=== PATIENT | female | born 1985 | race Caucasian/White ===

== ENCOUNTER 2020-01-23 09:27 | Outpatient (CLI) | payer OTHER, SELFPAY ==
--- NOTE | 2020-01-25 15:09 | WPDHOLTEREM ---
Holter/Event Monitor Holter/Event Monitor Date of procedure: 01/23/20 Procedure Type: 24 hour holter monitor Indications: Palpitations Conclusion: 1. 24 hour holter monitor on 01/23/20. 2. Predominant rhythm is sinus rhythm. HR range 60-148 bpm; average HR 88 bpm. 3. There are 22 premature supraventricular complexes and 5 supraventricular couplets. There are 9 episodes of atrial tachycardia, fastest at 154 bpm and longest lasting 26 beats. 4. There is one premature ventricular complex. No ventricular tachycardia. 5. No sinoatrial or atrioventricular blocks. No significant pauses greater than 2 seconds. 6. Patient reports symptoms of fast heart rate which demonstrate sinus rhythm, HR range 77-104 bpm.
== END 2020-01-23 09:28 | disposition home or self-care (01) ==
PROVIDERS: PCP Family Medicine; Visit Provider Obstetrics & Gynecology
DX: R00.2 Palpitations (principal)
CPT/HCPCS: 93225; 93226

== ENCOUNTER 2020-02-13 13:42 | Observation (INO) | payer OTHER, SELFPAY ==
[2020-02-13 14:00] VITALS: BP 119/66; PULSE 102
[2020-02-13 14:11] LABS: Add Urine Microscopic? NO; Appearance Urine Clear (Clear); Bilirubin Urine Negative (Negative); Blood Urine Negative (Negative); Color Urine Colorless (Yellow); Glucose Urine UA Negative (Negative); Ketones Urine Negative (Negative); Leukocyte Esterase Ur Negative LEU/UL (Negative); Nitrate Urine Negative (Negative); Protein Urine Negative (Negative); Specific Grav Ur 1.008 (1.001-1.035); Urobilinogen Urine Negative mg/dL (<2.0)
[2020-02-13 14:34] VITALS: BMI 22.0
--- NOTE | 2020-02-13 14:35 | OBADM ---
This patient, Paloma Ojeda, admitted to the OB room OB Post 115 for observation. Patient/family oriented to hospital policies and general routines including ID bracelet, bed and alarms, visiting hours, pain management, procedures, bathroom and other care routines, personal items, smoking policy, room service/diet, and visiting hours. Patient/Family are encouraged to report perceived risks to care and to ask questions if they do not understand what they are told or what they should do.
[2020-02-13 14:51] VITALS: BP 119/66; PULSE 103
--- NOTE | 2020-02-13 14:57 | PC.NURSE ---
5210- Spoke with Dr. Gregory, patient urinalysis and ROm plus reviewed. Orders to discharge home with precautions.
--- NOTE | 2020-03-05 11:37 | PM.OBTRLD ---
OB - Triage/Final Diagnosis Visit Information Date of evaluation: 02/13/20 Evaluation Laboratory results: Laboratory Tests 02/13/20 14:01 Urine Color Colorless Urine Appearance Clear Urine pH 7.0 Ur Specific [place] 1.008 Urine Protein Negative Urine Glucose (UA) Negative Urine Ketones Negative Ur Blood (Man) Negative Urine Nitrate Negative Urine Bilirubin Negative Urine Urobilinogen Negative Leukocyte Esterase Rfl Negative Final Diagnosis (1) contractions: Code(s): O47.9 - False labor, unspecified Status: Acute
== END 2020-02-13 14:55 | disposition home or self-care (01) ==
PROVIDERS: Admitting Provider Obstetrics & Gynecology; PCP Family Medicine; Visit Provider Obstetrics & Gynecology
DX: O47.9 False labor, unspecified (principal); Z3A.00 Weeks of gestation of pregnancy not specified
CPT/HCPCS: 59025; 81003; G0378; G0379

== ENCOUNTER 2020-03-13 19:24 | Observation (INO) | payer OTHER, SELFPAY ==
--- NOTE | 2020-03-13 19:24 | OBADM ---
This patient, Paloma Ojeda, admitted to the OB room OB Post 112 for observation. Patient/family oriented to hospital policies and general routines including ID bracelet, bed and alarms, visiting hours, pain management, procedures, bathroom and other care routines, personal items, smoking policy, room service/diet, and visiting hours. Patient/Family are encouraged to report perceived risks to care and to ask questions if they do not understand what they are told or what they should do.
[2020-03-13 19:40] VITALS: BMI 27.6
[2020-03-13 19:50] VITALS: BP 121/79; PULSE 91
[2020-03-13 20:18] VITALS: TEMP 36.6
--- NOTE | 2020-03-21 08:15 | PM.OBTRLD ---
OB - Triage/Final Diagnosis Final Diagnosis (1) contractions: Code(s): O47.9 - False labor, unspecified Status: Acute
== END 2020-03-13 22:15 | disposition home or self-care (01) ==
PROVIDERS: Admitting Provider Obstetrics & Gynecology; PCP Family Medicine; Visit Provider Obstetrics & Gynecology
DX: O47.9 False labor, unspecified (principal); Z3A.00 Weeks of gestation of pregnancy not specified
CPT/HCPCS: 84112; G0378; G0379

== ENCOUNTER 2020-05-01 14:53 | Outpatient (CLI) | payer OTHER, SELFPAY ==
[2020-05-01 15:39] LABS: Hematocrit 33.5 % (37.0-47.0); Hemoglobin 10.9 g/dL (12.0-15.0); Mean Corpuscular HGB Conc 32.5 g/dl (32-36); Mean Corpuscular Hemoglobin 29.3 pg (26-34); Mean Corpuscular Volume 90.1 fl (80-100); Platelet Count Result 271 k/mm3 (150-375); Red Blood Count 3.72 M/mm3 (4.2-5.4); Red Cell Distribution Width 13.1 % (11.5-14.5); White Blood Count 9.9 K/mm3 (4.5-10.0)
[2020-05-02 11:20] LABS: Rapid Plasma Reagin Non-Reactive (NonReactive)
== END 2020-05-01 14:54 | disposition home or self-care (01) ==
PROVIDERS: PCP Family Medicine; Visit Provider Obstetrics & Gynecology
DX: Z01.812 Encounter for preprocedural laboratory examination (principal)
CPT/HCPCS: 36415; 85027; 86592

== ENCOUNTER 2020-05-02 05:30 | Inpatient (IN) | payer OTHER, SELFPAY ==
--- NOTE | 2020-04-12 14:05 | PC.NURSE ---
VERIFIED WITH OR SCHEDULE AND PATIENT--C/S WITH TUBAL LIGATION ON 05/02/20 AT 0730 PATIENT GIVEN REQUISITION FOR LAB DRAW ON 05/01/20
[2020-05-02] VITALS (46 sets, daily range): BP systolic 96–136; BP diastolic 53–83; PULSE 60–94; RESP 12–18; TEMP 36.3–37.4; O2SAT 98–100; BMI 29.6
[2020-05-02] MEDS: LACTATED RINGERS 1,000 ML 125 ML IV CONT ×2 (05:58→07:22)
--- NOTE | 2020-05-02 06:42 | WPDANESEPPF ---
Anes - Initial Pre Proc Eval Procedure: Operation Date: 05/02/20 07:30 Proposed Procedures p Repeat Section with Bilateral Tubal Ligation - Rhonda Arizmendi MD Date/Time: 05/02/20 06:42 Surgeon: Rhonda Arizmendi MD Pre Op Diagnosis: R C/S w/ tubal Patient Data Age: 34 Gender: F Height: Weight: Last Vital Signs Pulse 78 05/02/20 06:15 BP 118/63 05/02/20 06:15 Allergies Allergy/AdvReac Type Severity Reaction Status Date / Time No Known Allergies Allergy Verified 04/25/20 15:34 Home Medications Medication Instructions Recorded Confirmed Type Daily 1 pkg PO DAILY 02/13/20 03/13/20 History magnesium oxide 250 mg PO DAILY 02/13/20 03/13/20 History Patient hx anesthesia problems: none Family hx anesthesia problems: none [facility] Past Medical History Medical History Heart palpitations Migraines Surgical History Surgical History Previous section 2009-breech Family History Family History Father Hypertension Social History Social History Smoking status: Former smoker Smoking end date: 07/18/15 Alcohol intake: current Substance use: never Gender identity (if verbalized by the patient): Female Spiritual care concerns: No Anes - Eval Final PreProcedure Day of Procedure 05/02/20 06:42 Patient weight: normal Heart: regular rate and rhythm Lungs: clear to auscultation Airway: Mallampati scale class II Neurological: alert and oriented Last oral intake: >/= 8 hours ASA classification: II Emergent: no Anesthetic plan: proceed Anesthesia type and monitoring: regional spinal and standard monitoring Informed Consent: The patient's anesthetic plan and its attendant risks and benefits were discussed with the patient/family/POA. Questions were solicited and answers provided to the satisfaction of the patient/family/POA.
--- NOTE | 2020-05-02 07:22 | WPDHPUPDATE1 ---
History and Physical Update Update Date/Time: 05/02/20 07:22 History and Physical has been reviewed, including an updated exam of the patient. There are NO changes in the patient's condition. Risks, benefits, and alternatives have been discussed and questions answered. Patient agrees to proceed with procedure.
--- NOTE | 2020-05-02 07:22 | PM.IMHP ---
H&P: HPI History of Present Illness Date/Time: 05/02/20 07:22 Chief complaint: R C/S w/ tubal Narrative: Paloma Ojdea is a 34 year old female at 39+4 with h/o prior C/S here for scheduled repeat C/S + BTL. No complaints today. normal movement, rare contractions. No vaginal bleeding or leaking fluid Review of Systems Review of Systems: All systems reviewed & are unremarkable except as noted in HPI and below PMFSH Past Medical History Medical History (Updated 05/02/20 @ 07:25 by Rhonda Arizmendi MD) Heart palpitations Migraines Surgical History Surgical History (Updated 05/02/20 @ 07:25 by Rhonda Arizmendi MD) Previous section 2009-breech Family History Family History Father Hypertension Social History Social History Smoking status: Former smoker Smoking end date: 07/18/15 Alcohol intake: current Substance use: never Gender identity (if verbalized by the patient): Female Spiritual care concerns: No Meds Home Medications and Allergies Home Medications Medication Instructions Recorded Confirmed Type Daily 1 pkg PO DAILY 02/13/20 03/13/20 History magnesium oxide 250 mg PO DAILY 02/13/20 03/13/20 History Allergies Allergy/AdvReac Type Severity Reaction Status Date / Time No Known Allergies Allergy Verified 04/25/20 15:34 Vital Signs Vital Signs - 24 hr 05/02/20 05:47 05/02/20 06:00 05/02/20 06:15 Pulse Rate 85 94 78 Blood Pressure 136/77 110/83 118/63 Exam Const: General: healthy appearing, comfortable and no acute distress Resp: Auscultation: clear to auscultation bilaterally Cardio: Rate: regular rate Rhythm: regular rhythm GI: Inspection: normal to inspection GI Palp: Yes Soft to palpation, No Tenderness to palpation present (GI) and Yes Other GI palpation findings present (gravid) Extrem: General: no pedal edema and no calf tenderness Psych: Mental Status: mental status grossly normal Assessment and Plan Assessment and plan (1) Previous section complicating , with delivery: Code(s): O34.219 - Maternal care for unspecified type scar from previous delivery Status: Acute Assessment and Plan: Proceed with repeat C section (2) Encounter for sterilization: Code(s): Z30.2 - Encounter for sterilization Status: Acute Assessment and Plan: Proceed with bilateral tubal ligation with C section. We discussed risks, benefits, and alternatives of C section as well as BTL in office and again today. She expressed understanding, signed consent, and wants to proceed.
--- NOTE | 2020-05-02 07:29 | P.OP_ITS ---
Procedure Note - Detailed Date of procedure: 05/02/20 Pre-op diagnosis: R C/S w/ tubal Post-op diagnosis: same Procedure performed: Repeat LTCS + BTL Description of procedure: She was taken to the operating room where spinal anesthesia was obtained and found to be adequate. She was prepared and draped in the normal sterile fashion in the dorsal supine position with a leftward tilt. A Pfannenstiel skin incision was made over her prior incision with a scalpel and extended to the underlying layer of fascia. The fascia was incised in the midline and extended laterally with Erickson scissors. The underlying rectus muscles were dissected off bluntly and sharply. The rectus muscles were in the midline. The peritoneum was entered sharply. The peritoneal incision was extended sharply with good visualization of the bladder. The bladder blade was inserted. The vesicouterine peritoneum was tented up and entered sharply with the Metzenbaum scissors and extended laterally. The bladder blade was reinserted. The lower uterine segment was incised in a transverse fashion with the scalpel. The incision was digitally stretched in a cephalocaudad direction. The membranes were ruptured with clear fluid noted. The 's head was delivered atraumatically. The shoulders and body were delivered easily. The cord was clamped x2 and cut. The infant was passed to the waiting nurse. The placenta was manually extracted. The uterus was exteriorized and cleared of all clots and debris. The uterine incision was closed using 0 Vicryl in a running locked fashion. There were a couple bleeding points along the left side of the incision, which were easily controlled using 0 Vicryl [id number]-[id number] sutures. Attention was then turned to the fallopian tubes. The right fallopian tube was grasped with a [place] clamp. A defect was made in the mesosalpinx with the Bovie cautery. Two free ties of 0 plain gut were placed on the fallopian tube, and the intervening segment of fallopian tube was excised. Attention was then turned to the left fallopian tube. The same procedure was performed on the left fallopian tube. Attention was turned back to the uterine incision, which was noted to be hemostatic. The uterus was then returned to the abdomen. The gutters were cleared of all clots and debris. Uterine incision was inspected once again and still found to be hemostatic. The rectus muscles were inspected. Any bleeding points were cauterized. The fascia was closed using 0 Vicryl in a running fashion. The subcutaneous tissue was irrigated. Any bleeding points were cauterized. The skin was closed using Inso rb absorbable tanner. She tolerated the procedure well. Sponge, lap, needle, and instrument counts were correct x2. She was taken to the recovery area in stable condition. Anesthesia: spinal Surgeon: Rhonda Arizmendi MD Estimated blood loss (mL): 360 Drains: Yes ([place]) Packing: No Pathology: yes Complications: No immediate complications Condition: stable Disposition: floor Findings: Male infant, cephalic; Apgars 9/9; weight 7# 7oz; normal uterus, tubes, and ovaries
--- NOTE | 2020-05-02 12:15 | PC.NURSE ---
Mother called out for assist with feeding . Consulted with patient, mother reports infant has been awake and eagerly latching. Mother reports breastfeed first child 10 years ago. Reviewed feeding cues, frequencies, duration of feedings, feeding elimination flow sheet, and signs of adequate intake. Demonstrated stimulation techniques to wake for feeding. Assisted with infant to breast. Reviewed positioning/alignment in cross cradle, holding breast in U hold and guided asymmetrical latch on. Discussed the rational for each. Infant was able to latch correctly. Infant nursed eagerly, with steady draws and frequent swallowing noted. Reviewed signs of a correct latch, effective nursing and suck swallow ratio. was able to maintain latch without discomfort to mother. Advised to stimulate infant while feeding to keep infant awake and effectively feeding for increased intake and to assist with maintaining deep latch. Demonstrated how to adjust latch more deeply while feeding. Instructed mother to call out for RN assistance if she is unable to latch infant for feeding or she has discomfort with nursing. Instructed feeding should be initiated three hours from start of last feeding or if feeding cues are noted before. Mother voiced understanding of information shared.
--- NOTE | 2020-05-02 15:30 | PC.NURSE ---
Mother called out for assist with feeding . Mother needs help with positioning due to C/S Reviewed infant feeding cues, frequencies, duration of feedings, feeding elimination flow sheet, and signs of adequate intake. Demonstrated stimulation techniques to wake infant for feeding. Assisted with infant to breast. Reviewed positioning/alignment in cross cradle, holding breast in U hold and guided asymmetrical latch on. Discussed the rational for each. was able to latch deeply. Mother reports tenderness with feeding. Mother released cross cradle and switched to cradle. Suggested mother maintain hold during feeding to assist with deep latch. Mother reported less discomfort with holding breast. Infant nursed eagerly, with steady draws and frequent swallowing noted. Reviewed signs of a correct latch, effective nursing and suck swallow ratio. was able to maintain latch with minimal discomfort to mother. Advised to stimulate infant while feeding to keep infant awake and effectively feeding for increased intake and to assist with maintaining deep latch. Demonstrated how to adjust latch more deeply while feeding. Instructed mother to call out for RN assistance if she is unable to latch infant for feeding or she has discomfort with nursing. Instructed feeding should be initiated three hours from start of last feeding or if feeding cues are noted before. Mother voiced understanding of information shared.
[2020-05-02] MEDS: KETOROLAC 30 MG/ML VIAL (*BKC) IV PUSH (18:48)
[2020-05-03] MEDS: KETOROLAC 30 MG/ML VIAL (*BKC) IV PUSH (00:43)
[2020-05-03] MEDS: HYDROcodone/acetaminophen (*CRX) 5-325 MG TABLET 1 TAB PO ×6 (01:35→23:14)
[2020-05-03 04:15] VITALS: BP 107/67; PULSE 76; RESP 14; TEMP 36.7; O2SAT 98
[2020-05-03 04:49] LABS: Basophils Absolute Auto 0.1 K/mm3 (0.0-0.1); Basophils Percent Auto 0.5 % (0.2-1.2); Eosinophils Absolute Auto 0.2 K/mm3 (0-0.3); Eosinophils Percent Auto 1.6 % (0-4.4); Hematocrit 26.6 % (37.0-47.0); Hemoglobin 8.5 g/dL (12.0-15.0); Immature Granulocyte Absolute 0.07 K/mm3 (0.00-0.031); Immature Granulocyte Percent A 0.5 % (0-0.5); Lymphocytes Absolute Auto 2.86 K/mm3 (0.9-3.2); Lymphocytes Percent Auto 21.8 % (18.3-44.2); Mean Corpuscular Hemoglobin 29.3 pg (26-34); Mean Corpuscular Volume 91.7 fl (80-100); Monocytes Absolute Auto 0.6 K/mm3 (0.1-0.6); Monocytes Percent Auto 4.7 % (2.6-8.5); Neutrophils Absolute Auto 9.3 K/mm3 (1.3-6.7); Neutrophils Percent Auto 70.9 % (45.5-73.1); Platelet Count Result 236 k/mm3 (150-375); Red Cell Distribution Width 13.2 % (11.5-14.5); White Blood Count 13.1 K/mm3 (4.5-10.0)
[2020-05-03] MEDS: DOCUSATE SODIUM 100 MG CAPSULE PO ×2 (07:00→16:39)
[2020-05-03] MEDS: IBUPROFEN 600 MG TABLET PO ×3 (07:00→20:04)
--- NOTE | 2020-05-03 07:35 | WPDANLDNPN2 ---
Anes-Prog Note L&D-Neuraxial Date/Time: 05/03/20 07:35 Neuraxial medications: intrathecal PF morphine Opiod-related complaints: none Patient feedback: Patient satisfied with post-operative pain management.
--- NOTE | 2020-05-03 07:35 | WPDANLDPN2 ---
Anes-Prog Note L&D Date/Time: 05/03/20 07:35 Comfortable throughout: section Neuraxial method: spinal Epidural/Spinal procedure site: clean & non-tender Neuro status: Neuro function grossly intact. Cardiovascular status: normal Respiratory status: normal Airway patency: baseline Mental status: baseline Post-Op hydration status: normal Vital Signs: Last Vital Signs Temp 36.7 C 05/03/20 04:15 Pulse 76 05/03/20 04:15 Resp 14 05/03/20 04:15 BP 107/67 05/03/20 04:15 Pulse Ox 98 05/03/20 04:15 Pain score (VAS): 2 I/O: Intake & Output 05/02/20 05/02/20 05/03/20 15:59 23:59 07:59 Intake Total 1000 Output Total 250 1125 Balance -250 -125 Post-procedural complaints: none Patient feedback: Patient satisfied with anesthetic care.
[2020-05-03 08:35] VITALS: BP 104/62; PULSE 75; RESP 12; TEMP 37.1; O2SAT 99
--- NOTE | 2020-05-03 10:02 | PM.OBPNVD ---
OB - PN: Subj Subjective Date/time seen: 05/03/20 10:02 She has moderate pain improved with medication. Positive flatus. Tolerated regular food. Has sat up in chair. Has not ambulated in halls. Was not lightheaded when standing or sitting up. OB - PN: Obj Data Labs CBC & Chem 7: 05/03/20 04:18 Labs: Laboratory Results - last 24 hr 05/02/20 05/03/20 09:46 04:18 WBC 13.1 H RBC 2.90 L Hgb 8.5 L Hct 26.6 L MCV 91.7 MCH 29.3 MCHC 32.0 RDW 13.2 Plt Count 236 MPV 12.0 H Immature Gran % (Auto) 0.5 Neut % (Auto) 70.9 Lymph % (Auto) 21.8 [place] % (Auto) 4.7 Eos % (Auto) 1.6 Baso % (Auto) 0.5 Lymph # (Auto) 2.86 [place] # (Auto) 0.6 Eos # (Auto) 0.2 Baso # (Auto) 0.1 Abs Immat Gran (auto) 0.07 H Absolute Neuts (auto) 9.3 H Absolute Nucleated RBC 0.0 Nucleated RBC % 0.0 Blood Type O Positive Antibody Screen Negative OB - PN A/P Assessment and Plan (1) Previous section complicating , with delivery: Code(s): O34.219 - Maternal care for unspecified type scar from previous delivery Status: Acute Assessment and Plan: POD1s/p Rc/s BTL- pain improved with medication. Asymptomatic post-op anemia. Continue iron supplementation. Routine post op care. Time Spent With Patient Time: Total time spent is greater than 50% in coordination of care (as documented) at patient's floor/unit and/or counseling patient: Exam Const: General: no acute distress Resp: Effort & Inspection: normal respiratory effort Extrem: General: normal to inspection Other: unable to inspect incision or fundus, she declined to lie down since she was going to restroom Psych: Mental Status: mental status grossly normal
[2020-05-03] MEDS: POLYSACCHARIDE IRON COMPLEX 150 MG CAPSULE PO (16:39)
[2020-05-03 20:05] VITALS: BP 105/64; PULSE 75; RESP 13; TEMP 37.3; O2SAT 98
[2020-05-04] MEDS: IBUPROFEN 600 MG TABLET PO ×4 (02:37→22:02)
[2020-05-04] MEDS: HYDROcodone/acetaminophen (*CRX) 5-325 MG TABLET 1 TAB PO ×7 (02:38→22:01)
[2020-05-04 08:00] VITALS: BP 115/68; PULSE 75; RESP 18; TEMP 36.9; O2SAT 100
[2020-05-04] MEDS: TETANUS,DIPHTHERIA,AC PERTUSSIS ADULT (0.5 ML) BOOSTRIX IM (08:11)
[2020-05-04] MEDS: POLYSACCHARIDE IRON COMPLEX 150 MG CAPSULE PO ×2 (08:13→16:25)
[2020-05-04] MEDS: DOCUSATE SODIUM 100 MG CAPSULE PO ×2 (08:13→16:25)
--- NOTE | 2020-05-04 10:24 | P.PNOB_ITS ---
OB - PN: Subj Subjective Date/time seen: 05/04/20 10:24 She states pain control is better. She has ambulated without problems. Positive flatus, tolerating regular food. OB - PN: Obj Data Labs CBC & Chem 7: 05/03/20 04:18 OB - PN A/P Assessment and Plan (1) Previous section complicating , with delivery: Code(s): O34.219 - Maternal care for unspecified type scar from previous [place] Status: Acute Assessment and Plan: POD 2 s/p R C/S and BTL. She is doing better with pain control. Routine post op care. Time Spent With Patient Time: Total time spent is greater than 50% in coordination of care (as docume nted) at patient's floor/unit and/or counseling patient: Exam Const: General: comfortable and no acute distress Resp: Effort & Inspection: normal respiratory effort Auscultation: clear to auscultation bilaterally Cardio: Rate: regular rate GI: Other: fundus appropriate tender -1 umb, incision small amount drainage mid, no active drainage expressed, no erythema Extrem: Other: nontender, 1+ edema bilat Psych: Mental Status: mental status grossly normal
[2020-05-04 20:00] VITALS: BP 115/68; PULSE 86; RESP 18; TEMP 36.4; O2SAT 100
[2020-05-05] MEDS: HYDROcodone/acetaminophen (*CRX) 5-325 MG TABLET 1 TAB PO ×3 (02:24→09:13)
[2020-05-05] MEDS: IBUPROFEN 600 MG TABLET PO (05:26)
--- NOTE | 2020-05-05 07:46 | PM.OBPNVD ---
OB - PN: Subj Subjective Date/time seen: 05/05/20 07:46 Patient comments: no complaints, pain well controlled, tolerating diet, flatus present and other (Lochia less than menses. Ambulating and voiding without problems) baby status: doing well OB - PN: Obj Data Labs CBC & Chem 7: 05/03/20 04:18 OB - PN A/P Plan day: 3 (s/p section, doing well and ready to be discharged home) Plan: routine care, discharge home and other (Follow up in office in 1 week) Time Spent With Patient Time: Total time spent is greater than 50% in coordination of care (as documented) at patient's floor/unit and/or counseling patient: Exam Const: General: no acute distress Resp: Auscultation: clear to auscultation bilaterally Cardio: Rate: regular rate Rhythm: regular rhythm GI: Inspection: non-distended, incision (Intact without erythema, drainage, or induration) and other (Fundus firm and nontender below umbilicus) GI Palp: Yes abdominal tenderness (appropriate) and Yes Soft to palpation Extrem: General: no edema
--- NOTE | 2020-05-05 07:47 | PM.OBDSVD ---
DS: Admitting Diagnosis Admitting Diagnosis Admitting Diagnosis: R C/S w/ tubal DS: Discharge Diagnosis Discharge Diagnosis (1) Encounter for sterilization: Code(s): Z30.2 - Encounter for sterilization Status: Acute (2) Previous section complicating , with delivery: Code(s): O34.219 - Maternal care for unspecified type scar from previous delivery Status: Acute OB - DS: Summary OB Procedures : None OB Procedures Intrapartum: OB Procedures: : P.P. tubal ligation Peripartum Data Delivery Method: Section Procedures: Procedures Operation Date: 05/02/20 07:30 Actual Procedures Side Surgeon p Repeat Section with Bilateral Tubal Ligation Rhonda Arizmendi MD complications: none Status at Discharge Functional status at discharge: independent ambulation Overall status at discharge: patient is progressing back to baseline Time Spent with Patient Time attestation: Total time spent providing and/or coordinating discharge services: Time spent: Less than 30 minutes DS: Data Data Completed and Pending Pending studies at discharge: Pending at discharge 05/02/20 10:02 Surgical [PTH] Routine Discharge Plan Discharge Attending physician on discharge: Rhonda Arizmendi Discharging Clinician: Rhonda Arizmendi Patient Disposition: Home, Self-Care Activity: may shower and pelvic rest Diet: regular Wound Care Instructions: incision open to air Patient Instructions: Antibiotic Form Stand Alone Forms: General Discharge Information Follow-up/Referrals: Rhonda Arizmendi MD [Physician] - 1 Week Discharge Medications: New hydrocodone-acetaminophen 5-325 mg Tablet 1 tab PO Q4H PRN (Reason: Moderate Pain (4-6)) Qty: 30 RF: 0 ibuprofen 600 mg Tablet 600 mg PO Q6H PRN (Reason: Cramping) Qty: 60 RF: 0 Continued magnesium oxide 250 mg magnesium Tablet 250 mg PO DAILY RF: 0 Daily [phone] mg-mcg-mg Combo Pack 1 pkg PO DAILY RF: 0 Date of admission: 05/02/20 05:30 Primary Care Provider: Lora Obrien Admitting Provider: Rhonda Arizmendi Attending physician on admission: Rhonda Arizmendi Condition: Stable
[2020-05-05 08:30] VITALS: BP 121/72; PULSE 78; PULSE 86; RESP 16; RESP 18; TEMP 36.6; O2SAT 100; O2SAT 97
--- NOTE | 2020-05-05 09:05 | PC.NURSE ---
Mother is able to independently latch infant with appropriate positioning/alignment. She reports slight nipple discomfort, is feeding as required and waking to feed if needed. Mother states milk is in and is full and firm. Reviewed engorgement relief of softening before feedings and ice packs after. has had at least 8 effective feedings in the past 24 hours, and is currently meeting outcomes for weight, output, jaundice and feeding frequencies. Mother states she feels confident to continue effective at home. Reviewed transition to breast milk, signs of adequate intake, and engorgement/relief. Instructed to call ICP if intake/output less than required. Reviewed regular medications mother is taking. Information provided per She. Reviewed community resources on the [facility] website and in the Mom/Baby guide. Information on outpatient services provided. Mother has no further questions at this time.
[2020-05-05] MEDS: DOCUSATE SODIUM 100 MG CAPSULE PO (09:13)
[2020-05-05] MEDS: POLYSACCHARIDE IRON COMPLEX 150 MG CAPSULE PO (09:13)
[2020-05-07 10:10] VITALS: BP 121/70; PULSE 68; RESP 20; TEMP 37; O2SAT 100
== END 2020-05-05 11:34 | disposition home or self-care (01) | DRG 785 ==
LOC: ANHLDR 05:34 → ANHOB2 11:29
PROVIDERS: Admitting Provider Obstetrics & Gynecology; PCP Family Medicine; Visit Provider Obstetrics & Gynecology
PROC: 10D00Z1 Extraction of Products of Conception, Low, Open Approach (ICD-10-PCS; CPT 59514; principal; 2020-05-02 07:30)
DX: O34.211 Maternal care for low transverse scar from previous cesarean delivery (principal); Z30.2 Encounter for sterilization; Z3A.39 39 weeks gestation of pregnancy; Z37.0 Single live birth
CPT/HCPCS: 36415; 85025; 86850; 86900; 86901; 88302; 90715; A9270; J0131; J1885; J2274; J2370; J2405; J2590; J2704; J7120

== ENCOUNTER 2021-03-02 09:33 | Emergency (ER) | payer BC, MEDICAID, SELFPAY ==
--- NOTE | ~2021-03-02 | XR_ITS ---
EXAMINATION: XR chest 1V portable DATE: 03/02/2021 10:36 INDICATION: COVID-19 pneumonia. TECHNIQUE: A single frontal view of the chest was obtained. COMPARISON: Chest single view 11/08/2007 FINDINGS: There are mild patchy airspace opacities in the right mid and lower lung zones and left mid lung zone. No pleural effusion or pneumothorax. The heart size is normal. IMPRESSION: 1. Mild patchy airspace opacities in the right mid and lower lung zones and left midlung zone, consis ts with COVID-19 pneumonia. Reviewed, dictated and finalized at location B. IMPRESSION: 1. Mild patchy airspace opacities in the right mid and lower lung zones and lef t midlung zone, consists with COVID-19 pneumonia.
[2021-03-02 09:42] VITALS: BP 108/75; PULSE 80; RESP 16; TEMP 36.6; O2SAT 100
--- NOTE | 2021-03-02 09:49 | ECG_ITS ---
Measurements Intervals [place] Rate: 91 P: 70 CA: 149 QRS: 73 QRSD: 78 T: 55 QT: 335 QTc: 412 Interpretive Statements SINUS RHYTHM POSSIBLE LEFT ATRIAL ENLARGEMENT CANNOT RULE OUT SEPTAL INFARCT, AGE INDETERMINATE BASELINE ARTIFACT- I, II, AVR, AVL ABNORMAL ECG Electronically Signed On 03-02-2021 10:00:56 CDT by Jovanny Bennett D.O.
[2021-03-02] MEDS: SODIUM CHLORIDE 0.9% IV 1,000 ML 999 ML IV CONT (13:30)
[2021-03-02 14:05] LABS: D Dimer 0.33 ug/mL (<0.48)
--- NOTE | 2021-03-02 14:25 | ED.GENADULT ---
HPI - General Adult General Chief complaint: Upper Respiratory Infection Stated complaint: COVID+, CHEST HEAVY Time Seen by Provider: 03/02/21 11:51 Source: patient and RN notes reviewed Mode of arrival: ambulatory Limitations: no limitations History of Present Illness HPI narrative: Patient is a 35-year-old female who presents with Covid symptoms that have been present for the last week patient had multiple family members also ill she comes to the emergency department for concern of chest tightness she still has a cough denies any current dyspnea patient has been taking [id number] medications with some improvement denies vomiting diarrhea and is otherwise healthy at baseline Related Data Allergies Allergy/AdvReac Type Severity Reaction Status Date / Time No Known Allergies Allergy Verified 03/02/21 11:44 Review of Systems Review of Systems: All systems reviewed & are unremarkable except as noted in HPI and below PMFSH Past Medical History Medical History Heart palpitations Migraines Surgical History Surgical History Previous section 05-01-10, c/s, pre term 36w, female, 6#7, breech Family History Family History Father Hypertension Social History Social History Smoking status: Never smoker Second hand tobacco smoke exposure: No Smoking end date: 07/18/15 Alcohol intake: current Substance use: never Gender identity (if verbalized by the patient): Female Spiritual care concerns: No Exam Narrative: GENERAL: Well-appearing, well-nourished, and in no acute distress. HEAD: Normocephalic, atraumatic. EYES: PERRLA and EOMI. ENT: Nares clear, no rhinorrhea or epistaxis. Mucous membranes moist. CHEST: Clear to auscultation. No respiratory distress. No wheezes rales or rhonchi HEART: Regular rate and rhythm. No murmur heard. Normal peripheral pulses. ABDOMEN: Soft, nontender, nondistended EXTREMITIES: Normal range of motion. No edema. SKIN: Warm, dry, no rash. NEURO: No focal deficits. Alert and oriented x3. PSYCH: Normal mood and affect. Course Course Emergency Course: Patient presented with COVID-19 symptoms pulmonary embolism was ruled out with negative D-dimer she is hemodynamically stable there is no hypoxemia she has Covid pneumonia she is not distressed will be discharged home provided with reasons to return and we will continue her quarantine and follow-up with primary care given strict reasons to return ABCs and vital signs intact and stable was hydrated in the emergency department Vital Signs Vital signs: Vital Signs Temperature 98 F 03/02/21 09:42 Pulse Rate 80 03/02/21 09:42 Respiratory Rate 16 03/02/21 09:42 Blood Pressure 108/75 03/02/21 09:42 Pulse Oximetry 100 03/02/21 09:42 Temperature 98 F 03/02/21 09:42 Pulse Rate 80 03/02/21 09:42 Respiratory Rate 16 03/02/21 09:42 Blood Pressure 108/75 03/02/21 09:42 Pulse Oximetry 100 03/02/21 09:42 Medical Decision Making MDM Narrative Medical decision making narrative: Patient with COVID-19 pneumonia was made aware of her findings given follow-up plan agrees with this treatment plan and knows she will return if symptoms worsen and is nondistressed and does not appear uncomfortable at this time Vital Signs Vital Signs: Vital Signs Temperature 98 F 03/02/21 09:42 Pulse Rate 80 03/02/21 09:42 Respiratory Rate 16 03/02/21 09:42 Blood Pressure 108/75 03/02/21 09:42 Pulse Oximetry 100 03/02/21 09:42 Temperature 98 F 03/02/21 09:42 Pulse Rate 80 03/02/21 09:42 Respiratory Rate 16 03/02/21 09:42 Blood Pressure 108/75 03/02/21 09:42 Pulse Oximetry 100 03/02/21 09:42 Lab Data Labs: Lab Results 03/02/21 Range/Units
[2021-03-02 14:50] VITALS: BP 114/75; PULSE 80; RESP 18; O2SAT 97
== END 2021-03-02 15:08 | disposition home or self-care (01) ==
PROVIDERS: Emergency Medicine Emergency Medical Services; Emergency Provider Emergency Medicine; PCP Family Medicine
DX: U07.1 COVID-19 (principal); J12.82 Pneumonia due to coronavirus disease 2019; R94.31 Abnormal electrocardiogram [ECG] [EKG]
CPT/HCPCS: 36415; 71045; 85380; 93005; 96360; 99283; J7030

== ENCOUNTER 2022-07-26 10:33 | Outpatient (CLI) | payer OTHER, SELFPAY ==
--- NOTE | ~2022-07-26 | XR_ITS ---
EXAMINATION: XR chest 2V Exam Date/Time: 07/26/2022 10:42 TANKERMAN HISTORY: EX-TOBACCO user, quit 5 yrs ago, no current symptoms Comparison: 03/02/2021. RESULT: Lines, tubes, and devices: None. Lungs and pleura: Clear. Cardiomediastinal silhouette: Stable. Other: No acute osseous or upper abdominal finding. IMPRESSION: No acute cardiopulmonary process. Reviewed, dictated and finalized at location K. ERMAN
== END 2022-07-26 10:34 | disposition home or self-care (01) ==
LOC: ANHIMG 10:36
PROVIDERS: PCP Family Medicine; Visit Provider Emergency Medicine
DX: Z87.891 Personal history of nicotine dependence (principal)
CPT/HCPCS: 71046

== ENCOUNTER 2023-11-22 16:37 | Outpatient (CLI) | payer OTHER, SELFPAY ==
--- NOTE | ~2023-11-22 | MM_ITS ---
EXAMINATION: MM screening renetta BI w mary jo HISTORY: Screening mammogram TECHNIQUE: Craniocaudal, lateral rotated craniocaudal and mediolateral oblique 3-D tomosynthesis imag es were obtained and synthetic 2-D images were generated. CAD analysis was submitted and interpreted. COMPARISON: Baseline examination. No prior mammogram is available for comparison at this institution. BREAST PARENCHYMAL COMPOSITION: The breasts are heterogeneously dense, which may obscure small masses . FINDINGS: There is a questionable 8.5 mm mass in the posterior upper outer right breast (MLO tomosynt hesis image 20/60). No suspicious mass, architectural distortion, malignant calcification, skin thickening or retraction in either breast is noted otherwise. IMPRESSION: 1. Possible 8.5 mm mass, posterior upper outer right breast 2. Diagnostic right mammogram and right breast ultrasound examination recommended BI-RADS Category 0: Incomplete: Needs additional imaging evaluation. Reviewed, dictated and finalized at location A. IMPRESSION: 1. Possible 8.5 mm mass, posterior upper outer right breast 2. Diagnostic right mammogram and right breast ultrasound examination recommend ed BI-RADS Category 0: Incomplete: Needs additional imaging evaluation.
== END 2023-11-22 16:38 | disposition home or self-care (01) ==
PROVIDERS: PCP Family Medicine; Visit Provider Nurse Practitioner Obstetrics & Gynecology
DX: Z12.31 Encounter for screening mammogram for malignant neoplasm of breast (principal); R92.8 Other abnormal and inconclusive findings on diagnostic imaging of breast
CPT/HCPCS: 77063; 77067

== ENCOUNTER 2023-12-15 10:15 | Outpatient (CLI) | payer OTHER, SELFPAY ==
--- NOTE | ~2023-12-15 | MMUS_ITS ---
EXAMINATION: MM diagnostic renetta RT w mary jo, US breast RT limited HISTORY: Follow-up right breast asymmetries TECHNIQUE: Additional 3-D tomosynthesis images of the right breast were performed and synthetic 2-D i mages were generated. CAD analysis was submitted and interpreted. High resolution Limited right breas t ultrasound was performed. COMPARISON: 11/22/2023 BREAST PARENCHYMAL COMPOSITION: Dense: The breasts are heterogeneously dense, which may obscure small masses FINDINGS: MAMMOGRAPHIC FINDINGS: There are no suspicious masses, calcifications or architectural distortion to suggest malignancy. The re are areas of asymmetry are less apparent with spot compression views. ULTRASOUND: Limited right breast ultrasound: At 1:00, 2 cm from the nipple there is an oval hypoechoic structure which may represent normal fibroglandular tissue or focal Oriented hypoechoic mass. No posterior features or internal vascularity. At 11:00, 5 cm from the nipp le there is a 3 mm cyst. At 11:00, 4 cm from the nipple, there are 2 adjacent cysts measuring up to 5 mm. IMPRESSION: 1. Probable benign right breast structure at 1:00, 2 cm from the nipple by ultrasound. There are kanchan gn right breast cysts. 2. Recommend 6 month follow-up Limited right breast ultrasound BI-RADS category 3, probably benign findings. Reviewed, dictated and finalized at location B. IMPRESSION: 1. Probable benign right breast structure at 1:00, 2 cm from the nipple by ultr asound. There are benign right breast cysts. 2. Recommend 6 month follow-up Limited right breast ultrasound BI-RADS category 3, probably benign findings.
== END 2023-12-15 10:16 | disposition home or self-care (01) ==
PROVIDERS: PCP Family Medicine; Visit Provider Nurse Practitioner Obstetrics & Gynecology
DX: R92.8 Other abnormal and inconclusive findings on diagnostic imaging of breast (principal)
CPT/HCPCS: 76642; 77061; 77065; G0279

== ENCOUNTER 2024-06-18 12:21 | Outpatient (CLI) | payer OTHER, SELFPAY ==
--- NOTE | ~2024-06-18 | MMUS_ITS ---
EXAMINATION: MM diagnostic renetta RT w mary jo, US breast RT limited HISTORY: Follow-up right breast masses TECHNIQUE: Additional 3-D tomosynthesis images of the right breast were performed and synthetic 2-D i mages were generated. CAD analysis was submitted and interpreted. High resolution Limited right breas t ultrasound was performed. COMPARISON: 11/22/2023 BREAST PARENCHYMAL COMPOSITION: Dense: The breasts are extremely dense, which lowers the sensitivity of mammography. FINDINGS: MAMMOGRAPHIC FINDINGS: There are no suspicious masses, calcifications or architectural distortion in the right breast to sug gest malignancy. ULTRASOUND: Limited right breast ultrasound: At 11:00, 5 cm from the nipple there is a 4 mm cyst. At 11:00, 5 cm from the nipple there are 2 adjacent cysts measuring 4 mm in aggregate. No suspicious masses to sugge st malignancy. IMPRESSION: 1. No evidence for malignancy in the right breast. Benign findings. 2. Routine yearly screening mammogram and regular clinical breast examination are recommended. BI-RADS Category 2: Benign finding(s). Reviewed, dictated and finalized at location B. LER ASSEMBLER IMPRESSION: 1. No evidence for malignancy in the right breast. Benign findings. 2. Routine yearly screening mammogram and regular clinical breast examination a re recommended. BI-RADS Category 2: Benign finding(s).
== END 2024-06-18 12:22 | disposition home or self-care (01) ==
LOC: ANHIMG 12:22
PROVIDERS: PCP Emergency Medicine; Visit Provider Surgery
DX: R92.8 Other abnormal and inconclusive findings on diagnostic imaging of breast (principal); N63.10 Unspecified lump in the right breast, unspecified quadrant
CPT/HCPCS: 76642; 77061; 77065; G0279

== ENCOUNTER 2024-12-07 10:22 | Outpatient (CLI) | payer OTHER, SELFPAY ==
--- NOTE | ~2024-12-07 | MM_ITS ---
EXAMINATION: MM screening renetta BI w mary jo HISTORY: Screening TECHNIQUE: Craniocaudal and mediolateral oblique 3-D tomosynthesis images were obtained and synthetic 2-D images were generated. CAD analysis was submitted and interpreted. COMPARISON: Comparison to multiple prior studies sequentially, with oldest reviewed study dated 01/2024. BREAST PARENCHYMAL COMPOSITION: Dense: The breasts are extremely dense, which lowers the sensitivity of mammography. FINDINGS: There is no evidence of suspicious mass, calcification, or architectural distortion to sugg est malignancy in either breast. There has been no suspicious interval change. IMPRESSION: 1. No mammographic evidence of malignancy. 2. Recommend routine screening mammography in one year. BI-RADS Category 1: Negative Reviewed, dictated and finalized at location B.
--- OUTSIDE RECORDS SUMMARY | 2024-12-07 10:26 | XMS_ITS | CONTINUITY OF CARE DOCUMENT ---
Author Name tiffany allen Address Unknown Organization [facility] Address [address] [place] [address] Phone [phone] Care Team Providers Care Demand Equipment Repairer Name Role Phone Ben Lovelace MD Unavailable COBY RIVERA MD Unavailable [phone] COBY RIVERA MD Unavailable [phone] PROBLEMS Condition Status Date Provider Notes Palpitations active Milagro Ventimiglia LEAD CASE MANAGER Migraine active Milagro Ventimiglia LEAD CASE MANAGER ENCOUNTERS Date Type Provider Location Encounter Diag nosis - In-person encounter Office Visit Ben Lovelace MD [facility] - In-person encounter Office Visit Ben Lovelace MD [facility] PalpitationsMigraine VITAL SIGNS Date Observation Value Provider Body Mass Index (Ratio) 25.58 kg/m2 Mahin Lovelace MD blood pressure, diastolic 76 mm[Hg] Woodrow greenwood blood pressure, systolic 110 mm[Hg] Brennan davis pulse rate 82 /min Ezekiel blood pressure, cuff size regular Ja rret oxygen saturation, oximetry 99 % Ezekiel respiratory rate E&M 14 /min Ezekiel weight E&M 131 [lb_av] Ezekiel Clemons y height E&M 60 [in_i] Ezekiel Clemons y Body Mass Index (Ratio) 25.58 kg/m2 Mahin Lovelace MD blood pressure, diastolic 78 mm[Hg] Sheyla quick Anil blood pressure, systolic 119 mm[Hg] Laurel luisa Ma oxygen saturation, oximetry 99 % Sandra Anil pulse rate 68 /min Sandra Anil respiratory rate E&M 17 /min Sandra Ej lliams blood pressure, cuff size large An abdelrahman Anil height E&M 60 [in_i] Sandra Anil weight E&M 131 [lb_av] Sandra Anil ALLERGIES No Known Drug Allergies RESULTS Date Observation Value Provider Reference Range Interpretation Location 9 thyroid stimulating hormone, serum 1.81 u[IU]/mL [facility] Normal 9 thyroxine, serum, free 1.1 ng/dL [facility] 0.8-1.8 Normal 9 triiodothyronine (T3), serum 120 ng/dL [facility] 76-181 Normal 9 ferritin, serum 33 ng/mL [facility] 16-154 Normal 9 basophils as percent of blood leukocytes 0.8 % [facility] Normal 9 eosinophils as percent of blood leukocytes 4.3 % [facility] Normal 9 monocyte count, blood 6.9 % [facility] Normal 9 lymphocyte count, blood 32.4 % [facility] Normal 9 neutrophils as percent of blood leukocytes 55.6 % [facility] Normal 9 basophils, absolute, manual 63 cells/mcL [facility] 0-200 Normal 9 eosinophils, absolute, manual 340 cells/mcL [facility] 15-500 Normal 9 monocytes, absolute, manual 545 cells/mcL [facility] 200-950 Normal 9 lymphocytes, absolute 2560 CELLS/UL [facility] 850-3900 Normal 9 Absolute Neutrophil count 4392 cells/mcL [facility] 5011-7483 Normal 9 mean platelet volume 11.7 fL [facility] 7.5-12.5 Normal 9 platelet count 288 THOUSAND/ UL [facility] 140-400 Normal 9 red blood cell distribution width 12.3 % [facility] 11.0-15.0 Normal 9 mean corpuscular hemoglobin concentration, RBC 31.5 G/DL [facility] 32.0-36.0 Low 9 mean corpuscular hemoglobin, RBC 28.5 pg [facility] 27.0-33.0 Normal 9 mean corpuscular volume, RBC 90.4 fL [facility] 80.0-100.0 Normal 9 hematocrit, blood 41.6 % [facility] 35.0-45.0 Normal 9 hemoglobin electrophoresis, blood 13.1 [facility] 11.7-15.5 Normal 9 erythrocyte (RBC) count 4.60 MILLION/U L [facility] 3.80-5.10 Normal 9 leukocyte (white blood cells) count, blood 7.9 THOUSAND/ UL [facility] 3.8-10.8 Normal 9 calcium, serum 9.2 mg/dL [facility] 8.6-10.2 Normal 9 carbon dioxide, venous blood 26 mmol/L [facility] 20-32 Normal 9 chloride, serum 105 mmol/L [facility] 98-110 Normal 9 potassium, serum 4.1 mmol/L [facility] 3.5-5.3 Normal 9 sodium, serum 139 mmol/L [facility] 135-146 Normal 9 urea nitrogen/creatinine ratio, serum SEE NOTE: (calc) [facility] 6-22 9 creatinine, serum 0.71 mg/dL [facility] 0.50-0.99 Normal 9 urea nitrogen, blood 11 mg/dL [facility] 7-25 Normal 9 blood glucose, random 94 mg/dL [facility] 65-139 Normal 9 iron saturation percent, serum 28 % (CALC) [facility] 16-45 Normal 9 iron binding capacity, total 324 MCG/DL (CALC) [facility] 250-450 Normal 9 iron, serum 91 ug/dL [facility] 40-190 Normal HISTORY OF MEDICATION USE Medication Status Instructions Dates Provider Indications Com ments Slynd 4 mg (28) tablet active Take 1 tablet by mouth once a day rizatriptan 5 mg tablet active Take as needed gabapentin 100 mg capsule active Take 1 capsule by mouth once a day SOCIAL HISTORY Date Observation Value Provider personal history of marijuana use no Jesus Puckett NP drug use no Jesus Puckett NP alcohol use no Jesus Puckett NP cigarette use yes Jesus Puckett NP smoking status Former smoker Jesus Quileseileen see BATTERY SERVICE TECHNICIAN personal history of marijuana use no Milagro Ventimiglia [facility] drug use no Milagro Ventimig marisela [facility] alcohol use no Milagro Ventimig marisela [facility] cigarette use yes Sandra Ma smoking status Former smoker Sandra mei INSURANCE PROVIDERS Payer name Policy type / Coverage type [facility] [place] MEDICAID (2) Medicaid [id number] ADVANCE DIRECTIVES Name Date DISCUSSED - NO DECISION MADE TREATMENT PLAN Date Name Performer Cardiology Xanderjayda Lavern Mattson P Cardiology:Heart Mon itor 12/19-01/03/24 S inus Rhythm with 19 paroxysmal Supraventricular Tachycardia e vents, rareVentricular ectopics, and rare Supraventricular e ctopics. The average heart rate [id number] with a maximum r ate of 141bpm and a minimum rate of 52bpm. L abs wnl. N o meds at this time D iscussed with patient, will continue to monitor symptoms and if palpitations worsen/become more frequent then will consider a BB. Jesus Puckett BATTERY SERVICE TECHNICIAN Cardiology Milagro alexis LEAD CASE MANAGER Cardiology:Etiology unclear W ill do labs to r/o underlying cause W ill do tele to r/o arrhythmia W ill return post testing or sooner if needed. Milagro Archuleta [facility] Date Name BASIC METABOLIC PANE L W/EGFR TSH, free T4, total T3 IRON AND TOTAL IRON BINDING CAPACITY FERRITIN CBC (INCLUDES DIFF/P LT) Monitor - Telemetry (Mobile Cardiac)
--- OUTSIDE RECORDS SUMMARY | 2024-12-07 10:26 | XMS_ITS | Clinical Summary ---
Author Organization [facility] [address] Address [address] [place] [address] Care Team Providers Care Municipal Services Manager Name Role Phone Lora Obrien MD Primary Care Provider Allergies No known active allergies Medications 25/iron fum/folic/dha (-1 ORAL) Active magnesium oxide (MAG-OX) 250 mg (150.8 mg elemental) tabletIndicatio ns:hypomagnesem ia 1 tablet (250 mg total) daily Active gabapentin (NEURONTIN) 100 mg capsule Take 1 capsule (100 mg total) by mouth nightly Active Active Problems Problem Noted Date Diagnosed Date 30 weeks gestation of 01/30/2020 Atrial tachycardia 01/30/2020 Palpitations 01/30/2020 Encounters Date Type Department Care Team Description 09/26/2024 9:30 AM CDT Office Visit [facility] at [address] [address] Soniya Marhc PA Avulsion of finger tip, initial encounter (Primary Dx) from Last 3 Months Family History Medical History Relation Name Comments Hypertension Father Cancer Other Relation Name Status Comments Father Alive Mother Alive Other Social History Tobacco Use Types Packs/Day Years Used Date Smoking Tobacco: Former Cigarettes Q uit: 01/30/2016 Smokeless Tobacco: Never Alcohol Use Standard Drinks/Week Comments Not Currently 0 (1 standard drink = 0.6 oz pur e alcohol) Comments Unknown Sex and Gender Information Value Date Recorded Sex Assigned at Not on file Legal Sex 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 Gender Identity Not on file Sexual Orientation Not on file Obstetrics History Para Term AB IAB SAB Ectopic Multiple Livin g Live Births 1 Date Outcome GA Total Labor Labor/2nd/3rd Weight Sex Type Anes PTL Leatha A1 A5 Name Clin Last Filed Vital Signs Vital Sign Reading Time Taken Comments Blood Pressure 128/86 09/26/2024 9:18 AM CDT Pulse 76 09/26/2024 9:18 AM CDT Temperature 36.6 C (97.8 F) 09/26/2024 9:18 AM CDT Respiratory Rate 16 09/26/2024 9:18 AM CDT Oxygen Saturation 98% 09/26/2024 9:18 AM CDT Inhaled Oxygen Concentration - - Weight 57.2 kg (126 lb) 09/26/2024 9:18 AM CDT Height 152.4 cm (5') 04/14/2020 8:31 AM CDT Body Mass Index 24.61 04/14/2020 8:31 AM CDT Plan of Treatment Health Maintenance Due Date Last Done Comments Cervical Cancer Screening 1983 Depression Screening 1983 Hepatitis C Screening 1983 Varicella Vaccines (1 of 2 - 13+ 2-dose series) 09/18/1996 Regular Well Visit/Exam 18-64 09/18/2001 Breast Cancer Screening-Mammogram 11/21/2024 11/22/2023 Influenza Vaccine (Season Ended) 2025 04/21/2020, 04/19/2019, 04/14/2017, Additional history exists DTaP/Tdap/Td Vaccine (6 - Td or Tdap) 05/04/2030 05/04/2020, 03/06/1999, 09/27/1989, Additional history exists Hepatitis B Screening Completed 02/25/2001, 999 HPV Vaccines Aged Out No longer eligi ble based on patient's age to complete this topic Pneumococcal vaccine <65 Aged Out No longer eligible based on patient's age to complete this topic Insurance [facility] Care Teams Municipal Services Manager Relationship Specialty Start Date End Date Lora Obrien MD [address] [facility] [address] [place] [address] PCP - General Family Medicine 01/29/20
--- OUTSIDE RECORDS SUMMARY | 2024-12-07 10:26 | XMS_ITS | Referral Summary ---
Author Organization [facility] [place] [address] Address [address] [place] [address] Care Team Providers Care Research Physician Name Role Phone Lora Obrien MD Primary Care Provider Encounters Date Type Department Care Team Description 09/26/2024 9:30 AM CDT Office Visit [facility] at [address] [address] Soniya March PA Avulsion of finger tip, initial encounter (Primary Dx) from Last 3 Months Allergies No known active allergies Medications 25/iron fum/folic/dha (-1 ORAL) Active magnesium oxide (MAG-OX) 250 mg (150.8 mg elemental) tabletIndicatio ns:hypomagnesem ia 1 tablet (250 mg total) daily Active gabapentin (NEURONTIN) 100 mg capsule Take 1 capsule (100 mg total) by mouth nightly Active Active Problems Problem Noted Date Diagnosed Date 30 weeks gestation of 01/30/2020 Atrial tachycardia 01/30/2020 Palpitations 01/30/2020 Social History Tobacco Use Types Packs/Day Years Used Date Smoking Tobacco: Former Cigarettes Q uit: 01/30/2016 Smokeless Tobacco: Never Alcohol Use Standard Drinks/Week Comments Not Currently 0 (1 standard drink = 0.6 oz pur e alcohol) Comments Unknown Sex and Gender Information Value Date Recorded Sex Assigned at Not on file Legal Sex Female 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
--- OUTSIDE RECORDS SUMMARY | 2024-12-07 10:26 | XMS_ITS | Clinical Summary ---
Author Organization [facility] Address [address] [place] [address] Care Team Providers Care Qc Tech Name Role Phone Nabil Mares MD Primary Care Provider [phone] Source Comments [facility],non[facility] Affiliates and Associated Physician Practices is amultiple site organization consisting of ambulatory clinics and hospital sitesin [place], [place], [place] and [place]. This disclosure is being madepursuant to the Care Everywhere program and may not contain all information available regarding this patient. Last updated 18.[facility] [employer] Allergies No known active allergies Medications * Be aware that medications may not be up to date on this document. Alwaysverify current medications with the patient. Slynd 4 MG TABS tablet Take 4 (four) tablets by mouth once daily 2 Active gabapentin (Neurontin) 100 MG capsuleIndicati ons:Intractable migraine with aura with status migrainosus Take 1 (one) capsule by mouth at bedtime 90 capsule 4 4 Active ibuprofen (Motrin) 600 MG tabletIndicatio ns:Intractable migraine with aura with status migrainosus Take 1 (one) tablet by mouth as needed with food for Pain One pill per day as needed 15 tablet 11 4 Active rizatriptan (Maxalt) 5 MG tabletIndicatio ns:Intractable migraine with aura with status migrainosus TAKE 1 TABLET BY MOUTH 1 TIME AT EARLY ONSET OF MIGRAINE. MAY REPEAT 1 TIME AFTER 2 HOURS NEEDED 9 tablet 11 5 Active rizatriptan (Maxalt) 5 MG tabletIndicatio ns:Intractable migraine with aura with status migrainosus Take 1 tab by mouth once at first sign of migraine. May repeat one time after 2 hours if needed. 9 tablet 11 4 025 Discontinued Active Problems Problem Noted Date Diagnosed Date Atrial tachycardia 01/30/2020 Palpitations 01/30/2020 Resolved Problems Problem Noted Date Diagnosed Date Resolved Date 30 weeks gestation of 01/30/2020 12/28/2023 Encounters Date Type Department Care Team Description 11/27/2024 Refill [facility] - Neurology [address] [place] [phone] Verona Ibarra APRN-JUANITO Refill Request from Last 3 Months Social History Tobacco Use Types Packs/Day Years Used Date Smoking Tobacco: Former Cigarettes Smokeless Tobacco: Never Tobacco Cessation:Counseling Given: Not Answered Comments No Sex and Gender Information Value Date Recorded Sex Assigned at Not on file Legal Sex Female 6:33 PM SUPPLIES PACKER Gender Identity Not on file Sexual Orientation Not on file Last Filed Vital Signs Vital Sign Reading Time Taken Comments Blood Pressure 129/92 06/28/2024 10:31 AM SUPPLIES PACKER Pulse 76 06/28/2024 10:31 AM SUPPLIES PACKER Temperature 36.9 C (98.4 F) 06/02/2023 9:57 AM SUPPLIES PACKER Respiratory Rate 18 12/21/2022 9:52 AM CDT Oxygen Saturation 98% 06/28/2024 10:31 AM SUPPLIES PACKER Inhaled Oxygen Concentration - - Weight 58.1 kg (128 lb) 06/28/2024 10:31 AM SUPPLIES PACKER Height 152.4 cm (5') 12/28/2023 9:54 AM CDT Body Mass Index 25 12/28/2023 9:54 AM CDT Plan of Treatment Upcoming Encounters Date Type Department Care Team (Late st Contact Info) Description 12/27/2024 10:00 AM CDT Office Visit [facility] - Neurology [address] [place] [phone] Verona Ibarra, SUPERVISOR FINAL-LEARNING SUPPORT AIDE [address] [place] [address] Health Maintenance Due Date Last Done Comments MAMMOGRAM 1983 HIV SCREENING 09/18/1998 HEPATITIS C SCREENING 09/14/2001 DTAP/TDAP/TD VACCINES (1 - Tdap) 09/18/2002 HEPATITIS B VACCINE (1 of 3 - 19+ 3-dose series) 09/18/2002 SCREENING FOR DIABETES 12/28/2023 COVID-19 VACCINE (1 - 2023-2 5 season) 2024 DEPRESSION SCREENING 07/18/2024 INFLUENZA VACCINE (Season Ended) 2025 LIPID TESTING 04/14/2025 04/14/2020 PAP SMEAR 07/07/2026 07/07/2023, 06/29/2022 ZOSTER VACCINE (1 of 2) 09/18/2033 HIB VACCINE Aged Out No longer eligi ble based on patient's age to complete this topic HPV VACCINE Aged Out No longer eligi ble based on patient's age to complete this topic MENINGOCOCCAL (Group B) VACCINE SHARED DECISION-MAKING Aged Out No longer eligible based on patient's age to complete this topic MENINGOCOCCAL GROUPS A/C/Y/W VACCINE Aged Out No longer eligible b ased on patient's age to complete this topic PNEUMOCOCCAL VACCINE Aged Out No long er eligible based on patient's age to complete this topic Insurance [facility] Care Teams Qc Tech Relationship Specialty Start Date End Date Nabil Mares MD [address] [place] [address] [address] [place] [address] PCP - General 07/09/22
--- OUTSIDE RECORDS SUMMARY | 2024-12-07 10:26 | XMS_ITS | Data Portability ---
Author Organization [facility] Address [address] [place] [place] [address] [place] [address] Care Team Providers Care Commercial Artist Name Role Phone BRITTANIEALINA FRIAS Primary Care Provider Assessment Encounter Date Assessment Date Assessment LastModified by Organization Details LastModified Time 06/29/2022 06/29/2022 Annual gynecological exam performed. Patient will come back in a year unless there are new symptoms. [email or web address] Not available 06/29/2022 10:48:44 07/07/2023 07/07/2023 Annual gynecological exam performed. Patient will come back in a year unless there are new symptoms. [email or web address] Not available 07/07/2023 10:23:08 Plan of Treatment Reminders Order Date Submit Date Provider Last Modified By Organization Details Last Modified Time Details Appointments None recorded. Lab urinalysis, dipstick 2021 022 [email or web address] 1 [address], [address], [place], [address], 11:49:35 Referral None recorded. Procedures None recorded. Surgeries None recorded. Imaging MAMMO, screening, bilateral 2022 023 [email or web address] [facility], [address] [place] [address] [address], [place], [address], 4 15:34:32 Medication Orders Slynd 4 mg (28) tablet [address] [facility], [address], [place], [place], [id number], 5 10:51:15 fluconazole 150 mg tablet 2022 023 [email or web address] [facility]34, [address], [place], [place], [id number], 3 10:28:12 nystatin-tr iamcinolone 100,000 unit/gram-0 .1 % topical ointment 2022 023 [email or web address] [facility]13744, [address], [place], [place], [id number], 3 10:28:35 Slynd 4 mg (28) tablet [address] [facility], [address] [place], [place], [id number], 5 10:51:15 Diflucan 200 mg tablet 2021 022 [email or web address] 1 [facility] [place], [address], 2 10:49:33 triamcinolo ne acetonide 0.5 % topical ointment 2021 022 [email or web address] 1 [facility] [place], [address], 2 10:49:38 Slynd 4 mg (28) tablet [address] [facility]10, [address] [place], [place], [id number], 5 10:51:15 Patient TargetsNo targets recorded. Patient InstructionsNo instructions recorded. Reason for Referral None Reported. Results Created Date Observation Date Name Description Value Unit Range Abnormal Flag Note LastModifiedBy Organization Detail LastModifiedTime 04/16/20 22 04/16/2022 urina lysis , dipst ick Leukocytes NEG Not Available Rob[facility] cook [address], [place], [address], 04/16/2022 11:48:17 04/16/20 22 04/16/2022 urina lysis , dipst ick Nitrite NEG Not Available [place] [address], [place], [address], 04/16/2022 11:48:17 04/16/20 22 04/16/2022 urina lysis , dipst ick Urobilinogen NEG Not Available [facility] [address], [place], [address], 04/16/2022 11:48:17 04/16/20 22 04/16/2022 urina lysis , dipst ick Protein NEG Not Available [place] [address], [place], [address], 04/16/2022 11:48:17 04/16/20 22 04/16/2022 urina lysis , dipst ick pH 7 Not Available [place] [address], [place], [address], 04/16/2022 11:48:17 04/16/20 22 04/16/2022 urina lysis , dipst ick Specific [place] 1.010 Not Available [facility] [address], [place], [address], 04/16/2022 11:48:17 04/16/20 22 04/16/2022 urina lysis , dipst ick Ketone NEG Not Available [place] [address], [place], [address], 04/16/2022 11:48:17 04/16/20 22 04/16/2022 urina lysis , dipst ick Bilirubin NEG Not Available [facility] [address], [place], [address], 04/16/2022 11:48:17 04/16/20 22 04/16/2022 urina lysis , dipst ick Glucose NEG Not Available [place] [address], [place], [address], 04/16/2022 11:48:17 04/16/20 22 04/16/2022 urina lysis , dipst ick Appearance CLEAR Not Available [facility] [address], [place], [address], 04/16/2022 11:48:17 04/16/20 22 04/16/2022 urina lysis , dipst ick Color YELLOW Not Available [place] [address], [place], [address], 04/16/2022 11:48:17 06/29/20 22 06/29/2022 IMAGE GUIDE D PAP AND HPV REGAR DLESS image guided Pap, HPV regardless of Pap result SEE RESULT S BELOW CASE REPOR T: Cytol ogy Gynec ologi twyla Repor t Case: [id number] Autho bee g Provi cem: Drew Drake Colle cted: 06/29 1059 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 FINAL DIAGN OSIS: Negat nate for Intra epith elial Gus blair or Kenyetta parkinson (NIL) . Elect yeni navarrete boogie d by Ema Becerra on 06/30 at 7:34 PM ----- ----- ----- ----- ----- ----- ----- ----- ----- ----- ----- ----- ----- ----- ----- ----- ----- ---- HPV RESUL TS: HPV mRNA E6/E7 : No HPV mRNA Detec myke NOTE: This high risk HPV mRNA assay detec ts fourt een high- risk HPV types (16, 18, 31, 33, 35, 39, 45, 51, 52, 56, 58, 59, 66, 68) witho ut diffe renti ation . COMME NT: Note: This speci men was revie wed by a Cytot echno logis t and/o r Patho logis t (as indic ated in this repor t) after evalu ation using the Thinp rep Imagi ng Syste m. CLINI TWYLA INFOR MATIO N: Menst rual Statu s: LMP (if appli cable ): 05/08 Clini twyla Histo ry/Pr eviou s Pap: Type of Neopl bhargav (if appli cable ): Signi fican t Clini twyla Findi ngs: Other Histo ry: Hormo nallely (if appli cable ): PAP EDUCA SUSAN L NOTE: The Pap Test is a scree anna test with an inher ent false negat nate rate. Liqui d-bas ed sampl ing may decre ase, but will not elimi kailee, false negat nate resul ts. A negat nate resul t does not precl ude the prese nce and/o r devel opmen t of disea se, since the prese nce of abnor mal cells in the sampl e depen ds on the locat ion of the lesio n and sampl ing techn ique. Owne nued regul ar scree anna is the best metho d of cance r preve ntion . If repor myke cytol ogic findi ng do not corre late with physi twyla and/o r histo rical findi ngs, jennifer patino tigat ion is recom otis d, as clini reyna white nted. Not Available [facility] (Lab) [address] [place], [address], 06/30/2022 20:37:24 09/28/19 23 09/27/2022 VAGIN ITIS/ VAGIN OSIS, DNA PROBE natasha sp. detection, direct probe NEGATI VE negati ve Not Available [facility] (Lab) [address] [place], [address], 09/28/2022 17:57:40 09/28/19 23 09/27/2022 VAGIN ITIS/ VAGIN OSIS, DNA PROBE gardnerella vag. detection, direct probe NEGATI VE negati ve Not Available [facility] (Lab) [address] [place], [address], 09/28/2022 17:57:40 09/28/19 23 09/27/2022 VAGIN ITIS/ VAGIN OSIS, DNA PROBE trichomonas vag. 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 Elect yeni navarrete boogie d by Blas Oconnell , NOEL on 07/12 at 4:26 PM ----- ----- ----- ----- ----- ----- ----- ----- ----- ----- ----- ----- ----- ----- ----- ----- ----- ---- HPV RESUL TS: HPV mRNA E6/E7 : No HPV mRNA Detec myke NOTE: This high risk HPV mRNA assay detec ts fourt een high- risk HPV types (16, 18, 31, 33, 35, 39, 45, 51, 52, 56, 58, 59, 66, 68) witho ut diffe renti ation . COMME NT: This speci men was revie wed by a Cytot echno logis t and/o r Patho logis t (as indic ated in this repor t) after evalu ation using the Thinp rep Imagi ng Syste m. CLINI TWYLA INFOR MATIO N: Menst rual Statu s: LMP (if appli cable ): Clini twyla Histo ry/Pr eviou s Pap: Type of Neopl bhargav (if appli cable ): Signi fican t Clini twyla Findi ngs: Other Histo ry: Hormo nallely (if appli cable ): PAP EDUCA SUSAN L NOTE: The Pap Test is a scree anna test with an inher ent false negat nate rate. Liqui d-bas ed sampl ing may decre ase, but will not elimi kailee, false negat nate resul ts. A negat nate resul t does not precl ude the prese nce and/o r devel opmen t of disea se, since the prese nce of abnor mal cells in the sampl e depen ds on the locat ion of the lesio n and sampl ing techn ique. Owen nued regul ar scree anna is the best metho d of cance r preve ntion . If repor myke cytol ogic findi ng do not corre late with physi twyla and/o r histo rical findi ngs, furth er inves tigat ion is recom otis d, as aidani reyna ruffined. Not Available [facility] (Lab) [address], [place], [address], 07/12/2023 17:29:16 11/28/19 24 11/22/2023 MAMMO , scree anna, bilat eral No observ ation record ed. [facility] [place] [address] [address], [place], [address], 11/29/2023 12:00:43 11/28/1911/22/2023 MAMMO , scree anna, bilat eral No observ ation record ed. [address] (Mammography) [address], [place], [address], 11/29/2023 17:28:16 Result Notes None recorded. Problems Name Problem SNOMED Code Status Onset Date Resolution Date Notes Provider Name and Address Organization Details Recorded Time Vaginola bial hernia Completed 201604/16/2022 Other specified noninflam matory disorders of vagina;Re corded Elsewhere : No Locati on: [facility] So urce: EHR Chron ic: N Practic e ID: 0001 Bill able Time: 04:15:00 PM Debbie [facility] 2 11:32:44 Acute vaginiti s [id number] Completed 201604/16/2022 Acute vaginitis ;Recorded Elsewhere : No Locati on: [facility] So urce: EHR Chron ic: N Practic e ID: 0001 Bill able Time: 04:15:00 PM Debbie [facility] 2 11:32:44 Vaginiti s and vulvovag initis Completed 201204/16/2022 Vaginitis ;Recorded Elsewhere : No Locati on: [facility] So urce: EHR Chron ic: N Practic e ID: 0001 Bill able Time: 11:00:00 AM Debbie Cummins [facility] 2 11:32:44 At increase d risk of sexually transmit myke infectio n [id number] Completed 201204/16/2022 Contact with or exposure to venereal diseases; Recorded Elsewhere : No Locati on: [facility] So urce: EHR Chron ic: N Practic e ID: 0001 Bill able Time: 11:00:00 AM Debbie Cummins [facility] 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 2 11:32:44 Pregnanc y detectio n examinat ion Completed 201904/16/2022 Encounter for test, result positive; Recorded Elsewhere : No Locati on: [facility] So urce: EHR Chron ic: N Practic e ID: 0001 Bill able Time: 08:30:00 AM Debbie Cummins [facility] 2 11:32:44 Abnormal weight loss [id number] Completed 201104/16/2022 Loss of weight;Re corded Elsewhere : No Locati on: [facility] So urce: EHR Chron ic: N Practic e ID: 0001 Bill able Time: 10:15:00 AM Debbie Cummins [facility] 2 11:32:44 Syphilis test finding [id number] Completed 201604/16/2022 Encntr screen for infection s w sexl mode of transmiss ;Recorded Elsewhere : No Locati on: [facility] So urce: EHR Chron ic: N Practic e ID: 0001 Bill able Time: 04:15:00 PM Debbie Cummins [facility] 2 11:32:44 Infectio n screenin g Completed 201404/16/2022 Encounter for screening for oth infec/par astc diseases; Recorded Elsewhere : No Locati on: [facility] So urce: EHR Chron ic: N Practic e ID: 0001 Bill able Time: 04:00:00 PM Debbie Cummins [facility] 2 11:32:44 Deep pain on intercou rse [id number] Completed 201804/16/2022 Deep dyspareun ia;Record ed Elsewhere : No Locati on: [facility] So urce: EHR Chron ic: N Practic e ID: 0001 Bill able Time: 04:00:00 PM Debbie Cummins [facility] 2 11:32:44 Screenin g for malignan t neoplasm of cervix Completed 201104/16/2022 Screening for malignant neoplasms of the cervix;Re corded Elsewhere : No Locati on: [facility] So urce: EHR Chron ic: N Practic e ID: 0001 Bill able Time: 10:15:00 AM Debbie hayes [facility] 2 11:32:44 Antenata l screenin g Completed 201904/16/2022 Encounter for screening for uncertain dates;Rec orded Elsewhere : No Locati on: [facility] So urce: EHR Chron ic: N Practic e ID: 0001 Bill able Time: 11:15:00 AM Debbie Cummins [facility] 2 11:32:44 Gestatio n less than 9 weeks [id number] Completed 201904/16/2022 Less than 8 weeks gestation of ;Recorded Elsewhere : No Locati on: [facility] So urce: EHR Chron ic: N Practic e ID: 0001 Bill able Time: 09:15:00 AM Debbie Cummins [facility] 2 11:32:44 Pregnanc y test negative [id number] Completed 201004/16/2022 examinati on or test, negative result;Re corded Elsewhere : No Locati on: [facility] So urce: EHR Chron ic: N Practic e ID: 0001 Bill able Time: 09:30:00 AM Debbie Cummins [facility] 2 11:32:44 Finding of pattern of menstrua l cycle [id number] Completed 201504/16/2022 Irregular interval between menstrual bleeding; Recorded Elsewhere : No Locati on: [facility] So urce: EHR Chron ic: N Practic e ID: 0001 Bill able Time: 02:00:00 PM Debbie Cummins [facility] 2 11:32:44 Neoplast ic disease of uncertai n behavior [id number] Completed 201504/16/2022 Neoplasm of uncertain behavior, unspecifi ed;Record ed Elsewhere : No Locati on: [facility] So urce: EHR Chron ic: N Practic e ID: 0001 Bill able Time: 03:00:00 PM Debbie Cummins [facility] 2 11:32:44 Evaluati on finding Completed 201804/16/2022 Hematuria , unspecifi ed;Record ed Elsewhere : No Locati on: [facility] So urce: EHR Chron ic: N Practic e ID: 0001 Bill able Time: 08:30:00 AM Debbie Cummins [facility] 2 11:32:44 Microsco pic hematuri a [id number] Completed 201504/16/2022 Other microscop ic hematuria ;Recorded Elsewhere : No Locati on: [facility] So urce: EHR Chron ic: N Practic e ID: 0001 Bill able Time: 05:30:00 PM Debbie Cummins [facility] 2 11:32:44 Malaise and fatigue [id number] Completed 201004/16/2022 Fatigue / Malaise;R ecorded Elsewhere : No Locati on: [facility] So urce: EHR Chron ic: N Practic e ID: 0001 Bill able Time: 09:30:00 AM Debbie [facility] 2 11:32:44 Urinary tract infectio us disease [id number] Completed 201804/16/2022 Urinary tract infection , site not specified ;Recorded Elsewhere : No Locati on: [facility] So urce: EHR Chron ic: N Practic e ID: 0001 Bill able Time: 08:30:00 AM Debbie [facility] 2 11:32:44 Leukorrh ea [id number] Completed 201404/16/2022 Leukorrhe a, not specified as infective ;Recorded Elsewhere : No Locati on: [facility] So urce: EHR Chron ic: N Practic e ID: 0001 Bill able Time: 04:45:00 PM Debbie [facility] 2 11:32:44 Female genital organ symptoms [id number] Completed 201304/16/2022 Unspecifi ed symptom associate d with female genital organs;Re corded Elsewhere : No Locati on: [facility] So urce: EHR Chron ic: N Practic e ID: 0001 Bill able Time: 11:15:00 AM Debbie [facility] 2 11:32:44 Educatio n Completed 201004/16/2022 Other general counselin g and advice on contracep tive managemen t;Practic e ID: 0001 Debbie Cummins [facility] 2 11:32:44 Ill-defi thomas intestin al infectio n Completed 201104/16/2022 No Show Fee;Pract ice ID: 0001 Debbie Cummins [facility] 2 11:32:44 Hypertro phic conditio n of skin [id number] Completed 201504/16/2022 Other hypertrop hic disorders of the skin;Prac london ID: 0001 Debbie Cummins [facility] 2 11:32:44 Pregnanc y [id number] Completed 201908/01/2020 Hanane Joiner [facility] 1 16:36:31 Deliveri es by [id number] Completed 201904/16/2022 Primary c/s in 2009. Rpt C/S vs ? PT DESIRES REPEAT C/S. Send task @ 32wks Debbie Cummins [facility] 2 11:32:44 Deliveri es by [id number] Completed 2019 Primary c/s in 2009. Rpt C/S vs ? PT DESIRES REPEAT C/S. Send task @ 32wks Hanane Joiner [facility] 16:36:27 Notes:Palpitations. 01/23/20 H olter Monitor completed. Cardiology consult 04/08/20. Nontraumatic hematoma of soft tissue Recorded Elsewhere: No Location: [facility] Source: EHR Chronic: N Practice ID: 0001 Billable Time: 10:30:00 AM Nontraumatic hematoma of soft tissue Practice ID: 0001 Problem Notes None recorded. Procedures Surgical History Date Name Laterality Status Provider Name and Address Organization Details Recorded Time 07/25/19 Date of Last Mammogram completed RUBÉN Patel [facility] 08/23/2024 10:50:33 06/29/20 23 Date of Last Pap Smear completed RUBÉN Patel [facility] 08/23/2024 10:51:56 05/02/20 20 section completed Jenifer Candelaria [facility] 06/29/2022 10:55:49 04/17/20 20 Tubal Ligation completed Jenifer Candelaria [facility] 06/29/2022 10:56:31 02/06/20 16 excision of skin tag [facility]/29[facility]2022 10:56:17 05/01/20 10 section completed Kendra Andres [facility] 11/15/2019 10:04:44 07/18/19 08 extraction of wisdom tooth completed Jenifer Candelaria [facility] 06/29/2022 10:56:42 07/18/19 06 Colposcopy completed Jenifer Candelaria [facility] 06/29/2022 10:58:12 07/18/19 06 cone biopsy [facility] 06/29/2022 10:57:23 extraction of wisdom tooth completed Dianelys Rodriguez [facility] [address], [place], [address], [facility] 06/29/2022 11:01:52 Imaging Results Imaging Date Name Status LastModified by Organiz ation Details LastModified Time 11/22/2023 MAMMO, screening, bilateral completed [address], [place], [address], 11/29/2023 12:00:43 11/22/2023 MAMMO, screening, bilateral completed [address] (Mammography) [address], [place], [address], 11/29/2023 17:28:16 Procedure Notes None recorded. Medical Equipment None Reported. Allergies No known drug allergies Medications Name Sig Start Date Stop Date Status Note LastModified by Organization Details LastModified Time Aviane 0.1 mg-20 mcg tablet take 1 tablet by oral route every day 07/29 completed Prescrib ed Elsewher e: No [facility] By: kaden rangel DateTime : 07/26/19 17 02:01:16 PM Not Available Not Available Not Available doxycycli ne hyclate 100 mg capsule TAKE 1 CAPSULE BY MOUTH EVERY 12 HOURS FOR 7 DAYS 08/23 completed Not Available Not Available Not Available azithromy rach 250 mg tablet 07/07 completed Not Available Not Available Not Available ibuprofen 800 mg tablet TAKE 1 TABLET BY MOUTH EVERY 8 HOURS NEEDED FOR PAIN 04/16 completed Not Available Not Available Not Available fluconazo le 150 mg tablet TAKE 1 TABLET BY MOUTH NOW. REPEAT IN 7 DAYS 07/07 completed Not Available Not Available Not Available hydrocodo ne 5 mg-acetam inophen 325 mg tablet TAKE 1 TO 2 TABLETS BY MOUTH EVERY 4 TO 6 HOURS NEEDED . DO NOT EXCEED 04/16 completed Not Available Not Available Not Available Loestrin 1.5/30 (21) 1.5 mg-30 mcg tablet take 1 tablet by oral route every day 04/09 completed Prescrib ed Elsewher e: No Locat ion: [facility] odify By: constantino farah DateTime : 04/09/20 11 09:30:00 AM Not Available Not Available Not Available fluconazo le 200 mg tablet TAKE 1 TABLET BY MOUTH EVERY OTHER DAY FOR 3 DOSES 06/29 completed Not Available Not Available Not Available metronida zole 0.75 % (37.5 mg/5 gram) vaginal gel INSERT 1 APPLICAT ORFUL INTO THE VAGINA EVERY NIGHT AT BEDTIME FOR 5 NIGHTS. 06/29 completed Not Available Not Available Not Available penicilli n V potassium 500 mg tablet TAKE 1 TABLET BY MOUTH 4 TIMES DAILY UNTIL GONE 04/16 completed Not Available Not Available Not Available topiramat e 25 mg tablet TAKE 1 TABLET BY MOUTH AT BEDTIME 07/07 completed Not Available Not Available Not Available triamcino lone acetonide 0.5 % topical ointment APPLY A THIN LAYER TO THE AFFECTED AREA(S) BY TOPICAL ROUTE 2 TIMES PER DAY PRN 06/29 completed Not Available Not Available Not Available nystatin- triamcino lone 100,000 unit/gram -0.1 % topical ointment APPLY TO THE AFFECTED AREA(S) BY TOPICAL ROUTE 2 TIMES PER DAY FOR 5 DAYS 07/07 completed Not Available Not Available Not Available amoxicill in 875 mg tablet TAKE 1 TABLET BY MOUTH EVERY 12 HOURS FOR 10 DAYS 07/07 completed Not Available Not Available Not Available famotidin e 20 mg tablet TAKE 1 TABLET BY MOUTH TWICE DAILY 04/16 completed Not Available Not Available Not Available amitripty line 25 mg tablet TAKE 1 TABLET BY MOUTH EVERY EVENING 07/07 completed Not Available Not Available Not Available Flagyl 500 mg tablet take 1 tablet by oral route 2 times every day 01/01 completed Prescrib laurence Hamilton e: No Locat ion: [facility] odify By: [email or web address] Pradeep r DateTime : 09/23/19 16 04:15:00 PM Not Available Not Available Not Available benzonata te 100 mg capsule TAKE 1 CAPSULE BY MOUTH EVERY 8 HOURS NEEDED 08/23 completed Not Available Not Available Not Available rizatript an 10 mg disintegr ating tablet 11/19 completed Not Available Not Available Not Available gabapenti n 100 mg capsule TAKE 1 CAPSULE BY MOUTH AT BEDTIME active Not Available Not Available No t Available ergocalci ferol (vitamin D2) 1,250 mcg (50,000 unit) capsule TAKE 1 CAPSULE BY MOUTH EVERY WEEK 08/23 completed Not Available Not Available Not Available ibuprofen 600 mg tablet TAKE 1 TABLET BY MOUTH EVERY DAY NEEDED WITH FOOD active Not Available Not Available No t Available methylpre dnisolone 4 mg tablets in a dose pack FOLLOW PACKAGE DIRECTIO NS 09/27 completed Not Available Not Available Not Available albuterol sulfate HFA 90 mcg/actua tion aerosol inhaler INHALE 2 PUFFS BY MOUTH FOUR TIMES DAILY NEEDED FOR SHORTNES S OF BREATH OR WHEEZING 04/16 completed Not Available Not Available Not Available norethind kapil (contrace ptive) 0.35 mg tablet TAKE 1 TABLET BY MOUTH ONCE DAILY 04/16 completed Not Available Not Available Not Available Terazol 7 0.4 % vaginal cream insert 1 applicat orful by vaginal route every day for 7 days at bedtime 05/29 completed Prescrib ed Elsewher e: No [facility] By: cheryl farah DateTime : 05/23/20 14 12:42:48 PM Not Available Not Available Not Available fluticaso ne propionat e 50 mcg/actua tion nasal spray,mario pension SHAKE LIQUID AND USE 1 SPRAY IN EACH NOSTRIL TWICE DAILY 08/23 completed Not Available Not Available Not Available loratadin e 10 mg tablet TAKE 1 TABLET BY MOUTH DAILY NEEDED FOR ALLERGY SYMPTOMS 04/16 completed Not Available Not Available Not Available naproxen 500 mg tablet TAKE 1 TABLET BY MOUTH TWICE DAILY WITH FOOD 08/23 completed Not Available Not Available Not Available amoxicill in 875 mg-potass ium clavulana te 125 mg tablet TAKE 1 TABLET BY MOUTH EVERY 12 HOURS FOR 10 DAYS 09/27 completed Not Available Not Available Not Available amoxicill in 500 mg-potass ium clavulana te 125 mg tablet TAKE 1 TABLET BY MOUTH EVERY 8 HOURS FOR 7 DAYS 08/23 completed Not Available Not Available Not Available rizatript an 5 mg tablet TAKE 1 TABLET BY MOUTH 1 TIME AT EARLY ONSET OF MIGRAINE . MAY REPEAT 1 TIME AFTER 2 HOURS NEEDED 08/23 completed Not Available Not Available Not Available nitrofura ntoin monohydra te/macroc rystals 100 mg capsule Take 1 capsule every 12 hours by oral route. 01/09 completed Not Available Not Available Not Available Clindesse 2 % vaginal cream,ext ended release insert by Vaginal route for 2 days 03/29 completed Prescrib ed Elsewher e: No [facility] odify By: oralia Schmitzou nter DateTime : 03/28/20 17 02:30:00 PM Not Available Not Available Not Available Tylenol 11/19 completed Not Available Not Available Not Available 04/16 completed Not Available Not Available Not Available Butalbita l Compound with Codeine 30 mg-50 mg-325 mg-40 mg capsule 11/19 completed Not Available Not Available Not Available Estarylla 0.25 mg-0.035 mg tablet take 1 tablet by oral route every day 11/19 completed Not Available Not Available Not Available Microgest in 24 FE 1 mg-20 mcg (24)/75 mg (4) tablet take 1 tablet by oral route every day 08/17 completed Prescrib ed Elsew e: No [facility] odify By: constantino ingramuntabdullahi DateTime : 08/30/19 10:48:11 AM Not Available Not Available Not Available Slynd 4 mg (28) tablet TAKE 1 TABLET BY MOUTH EVERY DAY WITH MEALS 08/23 completed Not Available Not Available Not Available Vitals Date Recorded Body weight Systolic blood pressure Diastolic blood pressure Provider Name and Address Organization Details Last Updated DateTime 04/16/2022 56431.86 g 110 mm[Hg] 70 mm[Hg] Debbie Cummins [facility] 04/16/2022 11:42:58 Date Recorded Body height Body mass index (BMI) Body weight Provider Name and Address Organization Details Last Updated DateTime 06/29/2022 152.4 cm 23 kg/m2 66697.9 g Jenifer Candelaria [facility] 06/29/2022 10:49:24 Date Recorded Systolic blood pressure Diastolic blood pressure Provider Name and Address Organization Details Last Updated DateTime 06/29/2022 122 mm[Hg] 76 mm[Hg] Dianelys Rodriguez, [facility]- [address], [place], [address], [facility] 06/29/2022 11:10:10 Date Recorded Body height Systolic blood pressure Diastolic blood pressure Provider Name and Address Organization Details Last Updated DateTime 09/27/2022 152.4 cm 131 mm[Hg] 84 mm[Hg] Mary Ivey [facility] 09/27/2022 10:27:32 Date Recorded Body height Body mass index (BMI) Body weight Systolic blood pressure Diastolic blood pressure Provider Name and Address Organization Details Last Updated DateTime 07/07/2023 152.4 cm 25 kg/m2 94909.82 g 120 mm[Hg] 77 mm[Hg] Emma Fabiano [facility] 10:27:42 Date Recorded Body height Body mass index (BMI) Body weight Provider Name and Address Organization Details Last Updated DateTime 08/23/2024 152.4 cm 24.8 kg/m2 38025.23 g RUBÉN Patel [facility] 08/23/2024 10:50:24 Date Recorded Systolic blood pressure Diastolic blood pressure Provider Name and Address Organization Details Last Updated DateTime 08/23/2024 121 mm[Hg] 80 mm[Hg] Emmie Rich JACOB [address], [place], [address], [facility] 08/23/2024 11:39:24 Social History Question Answer Notes LastModified by Organizat ion Details LastModified Time Tobacco Smoking Status Former Smoker Not Available [employer] 05/20/2020 03:28:11 Do You Have An Advance Directive? No [email or web address] Information n ot available 08/23/2024 Are You Blind Or Do You Have Difficulty Seeing? No [email or web address] Information n ot available 06/29/2022 What Is Your Level Of Caffeine Consumption? Moderate [email or web address] Information not available 08/23/2024 How Much Tobacco Do You Chew? None Information not available 08/23/2024 In The 14 Days Before Symptom Onset, Have You Had Close Contact With A Laboratory-confirm ed COVID-19 While That Case Was Ill? No [email or web address] Information n ot available 06/29/2022 In The 14 Days Before Symptom Onset, Have You Had Close Contact With A Person Who Is Under Investigation For COVID-19 While That Person Was Ill? No [email or web address] Information not available 06/29/2022 Have You Been To An Area Known To Be High Risk For COVID-19? No [email or web address] Information not available 06/29/2022 Are You Deaf Or Do You Have Serious Difficulty Hearing? No [email or web address] Information not available 06/29/2022 What Type Of Diet Are You Following? REGULAR [email or web address] Information n ot available 06/29/2022 What Is The Highest Grade Or Level Of School You Have Completed Or The Highest Degree You Have Received? [id number] [email or web address] Information not available 08/23/2024 Are There Any Guns Present In Your Home? Yes [email or web address] Information not available 08/23/2024 What Was The Date Of Your Most Recent Tobacco Screening? 06/29/2022 [email or web address] Information not available 06/29/2022 Do You Use Protection During Sex? No [email or web address] Information not available 08/23/2024 Do You Use Your Seat Belt Or Car Seat Routinely? Yes [email or web address] Information not available 06/29/2022 Do You Have Smoke And Carbon Monoxide Detectors In Your Home? Yes [email or web address] Information not available 06/29/2022 How Much Tobacco Do You Smoke? No [id number] Information not available 05/20/2020 Do You Use Sunscreen Routinely? Yes [email or web address] Information not available 06/29/2022 Have You Used IV Drugs? No Information not available 08/23/2024 Do You Have Difficulty Walking Or Climbing Stairs? No [email or web address] Information not available 06/29/2022 Sex: Unknown Functional Status Question Answer Note LastModified by Organizat ion Details LastModified Time Do you use any illicit or recreational drugs? No [email or web address] Information not available 06/29/2022 What is your level of alcohol consumption? None [email or web address] Information not available 08/23/2024 Do you or have you ever used smokeless tobacco? Never used smokeless tobacco [id number] Information not available 05/20/2020 Are you able to walk? YESWOREST [email or web address] Information not available 06/29/2022 Are you able to care for yourself? 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 No [email or web address] Information not available 06/29/2022 Do you or have you ever used e-cigarettes or vape? Never used electronic cigarettes [id number] Information not available 05/20/2020 What is your exercise level? Occasional [id number] Information not available 05/20/2020 Mental Status Question Answer Note LastModified by Organization D etails LastModified Time Do you feel stressed (tense, restless, nervous, or anxious, or unable to sleep at night)? [id number] [email or web address] Information not available 06/29/2022 Family History Relationship Description Onset Age of this Age Resolved Age Notes LastModified by Organization Details LastModified Time Father Hypertensive disorder [email or web address] l Not available 11/15/2019 10:03:23 Paternal Grandfather Hypertensive disorder [email or web address] l Not available 11/15/2019 10:03:23 Mother Cyst of ovary [email or web address] Not available 12/2024 10:39:13 Mother Anemia cleravatanaku l Not available 11/15/2019 10:03:43 Mother Asthma [email or web address] l Not available 11/15/2019 10:03:48 Mother Malignant neoplasm of uterus [email or web address] Not available 07/14 21:30:18 Unspecified Relation Malignant tumor of pancreas matern al great grandm a [email or web address] Not available 08/23/2024 10:39:13 Notes:Father: Hypertension M other: Asthma, Anemia, ovarian cyst Paternal grandfather: Hypertension Medical History Condition Response Other Y Blood Transfusion N Dermatologic Disorders N Gestational Diabetes N Anxiety Disorder N Autoimmune disease N Arthritis N Polyps N Infertility N Acid Reflux (GERD) N Cancer N Varicosities N Stroke N Neurologic/Epilepsy Y Fibromyalgia N Headaches N Kidney Disease N Heart Problems N Kidney or Bladder Problems N Eating Disorder N Art (IVF or FET) N Hepatitis/Liver Disease N No Past Medical History N Urinary Tract Infection N Asthma N Trauma/Violence N Thrombophilias N Allergies (Food, seasonal, environmental ) N Breast Cancer N Drug/Latex Allergies/Reactions N Lung Disease N Defects or Inherited Disease N Breast Problem N Hematologic disorders N Anesthesia Complications N History of STI Y Deep Vein Thrombosis N Polycystic ovary syndrome N History of abnormal pap Y Endometriosis N High Cholesterol N Thyroid Problems N GI Problems N Anemia N Psychiatric Illness N Ovarian Cancer N Diabetes N Pulmonary (TB, Asthma) N Eczema N Abuse/Domestic Violence N Depression/ depression N Heart Disease N Pre-Eclampsia N Hypertension N Osteoporosis N Gynecological History Statement/Question Response Date of Last Mammogram 07/25/2024 Flow Heavy Date of LMP 08/13/2024 Was last menstrual period normal Y STIs/STDs Y None Desired Control Method Other Abnormal Pap Y On BCP's at Conception? N HPV Vaccine N Colposcopy 07/18/2005 Duration of Flow (days) 5 Current Control Method Tubal Ligat ion Age at First Child 24 Are cycles usually normal Y Frequency of Cycle (Q days) 26 Sexually Active? Y Menses Monthly N Date of DEXA bone scan Age of first menstrual cycle 9 Date of Last Pap Smear 06/29/2023 Sexual Problems? N LMP Approximate Obstetrics History GPAL:G 2 P 2 0 0 2 Type Value Full Term 2 Living 2 Total 2 Past Encounters Encounter ID Performer Location Encounter Start Date Encounter Closed Date Diagnosis/Indication Diagnosis SNOMED-CT Code Diagnosis ICD10 Code Diagnosis Note [id number] Rhonda Arizmendi MD [facility] [address],[place] [address] 11/15/2019 09:42:00 11/15/2019 14:18:43 Routine care 994291590 Z34.92 Second tri mester 37098853 Z34.92 [id number] Rhonda Arizmendi MD [facility] [address],[place] [address] 11/20/2019 13:50:23 11/20/2019 14:42:47 Dysuria 21750639 R30.9 Star macrobid and check urine culture. Affirm also sent [id number] Babar Gregory MD [facility] [address],[place] [address] 12/13/2019 11:22:46 12/13/2019 13:26:59 screening for malformation 329493707 Z36.3 [id number] Vicki Claudio CNM [facility] [address],[place] [address] 12/13/2019 11:23:24 12/13/2019 13:26:15 Routine care 486317726 Z34.92 [id number] Babar Gregory MD [facility] [address],[place] [address] 01/10/2020 11:26:40 01/10/2020 12:10:07 condition affecting obstetrical care of mother 155223726 O35.8XX0 Z3A.23 [id number] Babar Gregory MD [facility] [address],[place] [address] 01/10/2020 11:28:09 01/10/2020 12:31:00 Routine care 594806769 Z34.82 [id number] [facility] [address],[place] [address] 02/08/2020 09:36:32 02/08/2020 10:18:12 Routine care 104026474 Z34.92 [id number] Dianelys Rodriguez [facility] [address],[place] [address] 04/16/2022 11:25:27 04/20/2022 16:06:09 Urinary symptoms 459658444 R39.9 Urine sent Vaginitis 37822650 N76.0 Suspected yeast infection after 2 rounds of recent abx.Rx sentReach out of sx's persist. Counseled on medication R/B's, Most common side effects, & use. All questions were answered to patient satisfacti on. Time spent in visit is a total of 30 mins with at least 50% of visit consisting of counseling and review of plan of care. 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 Will do med check during WWE [id number] Dianelys Rodriguez [facility] [address],[place] [address] 06/29/2022 10:27:19 06/29/2022 12:41:38 Gynecologic examination 79817471 Z01.419 Take Calcium with Vitamin D 1200mg daily if not receiving in daily diet. It is strongly advised to have an annual flu shot and up can obtain at most pharmacies . If you have not had a TDap shot in the last 10 years you should obtain one as well. Discussed with patient & provided with informatio n regarding Gardisil vaccine to prevent the 4 strains for HPV that cause cervical cancer if under age 26. Encourage safe sexual practices, to use condoms and limit partners if not already in a monogamous relationsh ip. Do monthly self breast exams. Have mammogram yearly or every other year depending on family history. BRCA testing is now available for patients with strong genetic history of female cancer. If interested contact the office. Engage in daily exercise of low impact aerobic exercise 45-60 minutes 4-5 times weekly. Avoid tobacco and illicit drugs as well as using moderation with alcohol intake less than 1-2 8 oz beverages daily. This lifestyle behavior pattern will lead to less health conditions and longer life span. If BMI greater than 25 weight watchers or dietary consult advised. Patient received above instructio ns, and questions have been answered. If you have any questions please call or respond to this email. Patient was made aware of the patient portal and may obtain a paper copy of today's plan if desired. Pap/hpv sent STD Screen declined Genetic Screen discussed Colon Screen na Dexa Screen na Routine Labs PCPMammo due age 38yo Secondary dysmenorrhea 13971629 N94.5 Happy on POPRF sent [id number] Dianelys Rodriguez [facility] [address],[place] [address] 07/07/2023 10:19:35 07/07/2023 10:53:43 Gynecologic examination 31530490 Z01.419 Z11.51 Take Calcium with Vitamin D 1200mg daily if not receiving in daily diet. It is strongly advised to have an annual flu shot and up can obtain at most pharmacies . If you have not had a TDap shot in the last 10 years you should obtain one as well. Discussed with patient & provided with informatio n regarding Gardisil vaccine to prevent the 4 strains for HPV that cause cervical cancer if under age 26. Encourage safe sexual practices, to use condoms and limit partners if not already in a monogamous relationsh ip. Do monthly self breast exams. Have mammogram yearly or every other year depending on family history. BRCA testing is now available for patients with strong genetic history of female cancer. If interested contact the office. Engage in daily exercise of low impact aerobic exercise 45-60 minutes 4-5 times weekly. Avoid tobacco and illicit drugs as well as using moderation with alcohol intake less than 1-2 8 oz beverages daily. This lifestyle behavior pattern will lead to less health conditions and longer life span. If BMI greater than 25 weight watchers or dietary consult advised. Patient received above instructio ns, and questions have been answered. If you have any questions please call or respond to this email. Patient was made aware of the patient portal and may obtain a paper copy of today's plan if desired. Pap/hpv sentSTD Screen declinedGe netic Screen discussedC olon Screen naDexa Screen naRoutine Labs PCPMammo ordered Screening mammography 24 878412 Z12.31 Secondary dysmenorrhea 78762496 N94.5 Happy on POPRF sent [id number] Emmie Rich JACOB [facility] [address] [address] 09/27/2022 10:12:17 09/27/2022 10:54:59 Vaginitis 13958696 N76.0 suspect yeast on exam and hx of recent antibiotic coursevagi nitis panel sentSTI testing declinedRx sent - R/B discussedV ulvar care guidelines discussedR TC if symptoms persist past treatment Time spent in visit is a total of 20 mins with at least 50% of visit consisting of counseling and review of plan of care. Urinary symptoms 4085846 08 R39.9 UA normalCx sent [id number] BRISEIDA Cortez [facility] [address],[place] [address] 08/23/2024 10:36:57 08/23/2024 11:40:31 Gynecologic examination 25762570 Z01.419 WWEBC - BTLPap - UTD/not indicated today, Q3-5yrs per asccp guidelines STI screen - declinedMa mmogram - UTD/follow s with [facility] Colon cancer screening - n/aRoutine labs - UTD/PCPRTC in 1 yr or sooner if needed Suggested Calcium with Vitamin D daily. Patient advised to get an annual flu shot in the fall and she could obtain at local pharmacy. Also to obtain TDap vaccinatio n if you have not had one in the last 10 years. Recommend yearly mammograms . Encouraged monthly self breast exams. Encourage safe sexual practices, to use condoms and limit partners if not already in a monogamous relationsh ip. Engage in regular exercise. Avoid tobacco and illicit drugs. This lifestyle behavior pattern will lead to less health conditions and longer life span. If BMI greater than 25 dietary consult advised. All questions have been answered. Health Concerns Section Related Observation LastModified by Organization Detai ls LastModified Time None Recorded Concern Status LastModified by Organization Details LastModified Time None Recorded Advance Directives Directive N: Payers Encounter Date Sequence Insurance Name Policy Number Policy Morrell Covered Member ID Morrell Member ID Guarantor Name 04/16/2022 1 *SELF PAY* Hiro selena Ojeda 06/29/2022 1 [facility] ON OR AFTER 01/15/21 (MEDICAID REPLACEMENT - HMO) Paloma Ojeda [id number] Paloma Ojeda 09/27/2022 1 [facility] ON OR AFTER 01/15/21 (MEDICAID REPLACEMENT - HMO) Paloma Ojeda [id number] Paloma Ojeda 07/07/2023 1 [facility] ON OR AFTER 01/15/21 (MEDICAID REPLACEMENT - HMO) Paloma Ojeda [id number] Paloma Ojeda 08/23/2024 2 [facility] ON OR AFTER 01/15/21 (MEDICAID REPLACEMENT - HMO) [id number] Paloma Ojeda [id number] Paloma Ojeda 08/23/2024 1 [facility] ON OR AFTER 01/15/21 (MEDICAID REPLACEMENT - HMO) Paloma Ojeda [id number] Paloma Ojeda Notes Date Note Type Note Provider Name and Address Organization Details Recorded Time 2 text/html Vaginal/Vulvar ProblemReported bypatient.Notes:Here today for possible yeast infection. Neg pain of abd/pelvis/flank+ urinary sx's of frequency.Neg GI sx'sNeg N/V/F/C/D++ Vag d/c, (NEG) odor, ++ irritation, ++ itchingDeclined need std screen Additional concerns:Wants to see if alternative for micronor POP since it's causing some BTB over the last 6mos.She takes it for dysmenorrhea. Dianelys Rodriguez [facility] [address], [place], [address], [facility] 08/25/2022 16:02:57 2 text/html Annual GYNReported bypatient.History:no gynecologic complaints Menstrual cycle:Normal menses Urinary symptoms:No hematuria; No incontinence Vulva:No genital lesion Vagina:Normal vaginal discharge Breast:No breast pain; No breast lump; No nipple discharge Current Contraception:Satisfie d with current contraception; Oral contraceptives; Tubal ligation Sexual complaints:No sexual complaints; No pain during intercourse; Normal libido Menopausal Symptoms:No menopausal symptoms; Normal vaginal lubrication Psychological symptoms:No depression; No anxiety; No PMDD Preventive measures:Encourage self breast examination; Encourage regular exercise; Encourage no tobacco use; Encourage regular mammograms starting age 40; History of abnormal pap smear/cervical dysplasia Dianelys Rodriguez [facility] [address], [place], [address], [facility] 06/29/2022 11:12:40 3 text/html 37yoPresents for evaluation of vaginal itching, discharge, odor, and frequent urinationSymptoms started about 1 week agoRecently was on antibioticsNo new partnersSlynd for BCDenies any pelvic pain, fevers, n/v, or flu-like symptoms BRISEIDA Cortez [address], [place], [address], [facility] 09/27/2022 10:42:43 3 text/html Annual GYNReported bypatient.History:no gynecologic complaints Menstrual cycle:Normal menses Urinary symptoms:No hematuria; No incontinence Vulva:No genital lesion Vagina:Normal vaginal discharge Breast:No breast pain; No breast lump; No nipple discharge Current Contraception:Satisfie d with current contraception; Oral contraceptives; Tubal ligation Sexual complaints:No sexual complaints; No pain during intercourse; Normal libido Menopausal Symptoms:No menopausal symptoms; Normal vaginal lubrication Psychological symptoms:No depression; No anxiety; No PMDD Preventive measures:Encourage self breast examination; Encourage regular exercise; Encourage no tobacco use; Encourage regular mammograms starting age 40; Followed with yearly pap smears; Needs to schedule mammogram BRISEIDA Liriano- [address], [place], [address], [facility] 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 Post-MenopausalReporte d bypatient.Menopausal Symptoms:no menopausal symptoms; normal vaginal lubrication Vaginal Bleeding:history of menopause having occurred; no history of post menopausal bleeding Urinary Symptoms:no hematuria; no incontinence; no nocturia; no urinary frequency Vulva:no genital lesion; no vulvar atrophy Vagina:normal vaginal discharge; no vaginal atrophy Breast:no breast lump; no nipple discharge; no breast pain Sexual Complaints:no sexual complaints Psychological Symptoms:no depression; no anxiety Preventive Measures:encourage regular mammograms starting age 40; encourage self breast examination; encourage regular exercise; encourage no tobacco useNotes:38yo wweBC - BTLh/o abnormal pap in 2005 - no procedures required. Normal paps since per ptlast pap 07/07/2023 : nilm, HPV (-)mammogram last 07/2023 : following with breast specialist at [facility]. Repeating mammograms every 6 months, has not required a biopsy.UTD with PCP BRISEIDA Cortez [address], [place], [address], [facility] 08/23/2024 11:39:38 OBGyn Episode Ob Episode Information Episode Created Date Number of Fetuses Patient Bloodtype Patient rh Status Prepregnancy Weight lbs Domestic Partner Domestic Partner Phone Father Name Chainstitch Elastic Attacher Status 11/15/19 20 1 CLOSED Fetus Data First Name Last Name Admitted to NICU Weight (g) Sex Living Outcome Pediatric Complications Fetus ID Race Codes Race Delivery Type 3373.36 3704 M Full Term 970 Primary Darien Calculation Initial Darien Date Initial Exam Date Initial Exam Provider Initial Ultrasound Date Last Menstrual Period Date Ultra Sound Weeks Gestation 0 Eighteen To Twenty Week Darien Update Ultra Sound Date Fundal Height At Umbil Quickening Date Ultra Sound Latest Weeks Gestation Final Darien Confirmed By Final Darien Confirmed Date Final Darien Date Ultra Sound Latest Days Gestation 0 0 Menstrual History Last Menstrual Date Menses Monthly On Bcp Conception Prior Menses Frequency Hcg Plus Date Menarche Onset Age Delivery Information Delivery Date Delivery Type Labor Anesthesia Weeks Gestation Incision Type Labor Labor Length Hrs Delivered By Post Complications Tubal Sterilization Discharge Date Comments 0 39 Discharge Information Feeding Method Contraceptive Method Maternal HG B and HCT Levels Ob Episode Information Episode Created Date Number of Fetuses Patient Bloodtype Patient rh Status Prepregnancy Weight lbs Domestic Partner Domestic Partner Phone Father Name Chainstitch Elastic Attacher Status 11/15/19 20 1 O Positive 114 CLOSED Fetus Data First Name Last Name Admitted to NICU Weight (g) Sex Living Outcome Pediatric Complications Fetus ID Race Codes Race Delivery Type [id number] Problems Problem Notes Problem Name Start Date End Date Resolution Snomed Code Not e Deliveries by 11/16/[id number] Primary c/s in 2009. Rpt C/S vs ? PT DESIRES REPEAT C/S. Send task @ 32wks Darien Calculation Initial Darien Date Initial Exam Date Initial Exam Provider Initial Ultrasound Date Last Menstrual Period Date Ultra Sound Weeks Gestation 05/06/2020 11/15/2019 09/12/2019 07/25/2019 6 Eighteen To Twenty Week Darien Update Ultra Sound Date Fundal Height At Umbil Quickening Date Ultra Sound Latest Weeks Gestation Final Darien Confirmed By Final Darien Confirmed Date Final Darien Date Ultra Sound Latest Days Gestation 0 [email or web address] 11/15/2019 05/06/20 20 0 Pre-joseph Flowsheet Flowsheet Date 11/15/2019 Heller Score Blood Edema Fundus Height Fundus Units Glucose Ketones Leukocytes Nitrite Labor Signs Protein Cervic Dilation Cervic Effacement Cervic Station none 16 cm trace Type Weight in lbs Pre/Post Dialysis Refused Weight 117.379150988385 BP Diastolic BP Location Tested BP Systolic BP Type 72 115 Fetus Heart Rate Present A 153 Fetus Movement A Yes Comments Glucose negative wit h EDC 05/06 by 6 week U/S, unsure LMP. No complaints. She decided to do NIPT due to AMA Flowsheet Date 11/20/2019 Heller Score Blood Edema Fundus Height Fundus Units Glucose Ketones Leukocytes Nitrite Labor Signs Protein Cervic Dilation Cervic Effacement Cervic Station none 17 cm trace 0cm 0% -4 Type Weight in lbs Pre/Post Dialysis Refused Weight 117.128949208965 BP Diastolic BP Location Tested BP Systolic BP Type 69 117 Fetus Heart Rate Present A 153 Fetus Movement A Yes Comments glucose negative. She c/o ti ghtening 1-2 times per hour, urinary frequency and dysuria. Increased vaginal discharge. No itching or burning. No new partner. No N/V, fever, flank pain. Start macrobid for possible UTI and send urine culture. Affirm also sent. Declines STD testing Flowsheet Date 12/13/2019 Heller Score Blood Edema Fundus Height Fundus Units Glucose Ketones Leukocytes Nitrite Labor Signs Protein Cervic Dilation Cervic Effacement Cervic Station Type Weight in lbs Pre/Post Dialysis Refused BP Diastolic BP Location Tested BP Systolic BP Type Fetus Heart Rate Present Fetus Movement Comments Flowsheet Date 12/13/2019 Heller Score Blood Edema Fundus Height Fundus Units Glucose Ketones Leukocytes Nitrite Labor Signs Protein Cervic Dilation Cervic Effacement Cervic Station trace Type Weight in lbs Pre/Post Dialysis Refused Weight 120.272090166645 BP Diastolic BP Location Tested BP Systolic BP Type 68 110 sitting Fetus Heart Rate Present Fetus Movement A Yes Comments Baseline anatomy complete to day. Will await recommendations. Pt is planning on r/c/s. Flowsheet Date 01/10/2020 Heller Score Blood Edema Fundus Height Fundus Units Glucose Ketones Leukocytes Nitrite Labor Signs Protein Cervic Dilation Cervic Effacement Cervic Station Type Weight in lbs Pre/Post Dialysis Refused BP Diastolic BP Location Tested BP Systolic BP Type Fetus Heart Rate Present Fetus Movement Comments Flowsheet Date 01/10/2020 Heller Score Blood Edema Fundus Height Fundus Units Glucose Ketones Leukocytes Nitrite Labor Signs Protein Cervic Dilation Cervic Effacement Cervic Station 24 trace Type Weight in lbs Pre/Post Dialysis Refused Weight 125.369162984745 BP Diastolic BP Location Tested BP Systolic BP Type 76 117 Fetus Heart Rate Present A 145 Fetus Movement A Yes Comments Flowsheet Date 02/08/2020 Heller Score Blood Edema Fundus Height Fundus Units Glucose Ketones Leukocytes Nitrite Labor Signs Protein Cervic Dilation Cervic Effacement Cervic Station neg trace 29 trace Type Weight in lbs Pre/Post Dialysis Refused Weight 132.767957198942 BP Diastolic BP Location Tested BP Systolic BP Type 76 125 Fetus Heart Rate Present A 155 Fetus Movement A Yes Comments PATIENT STATES THAT HAVING C RAMPING IN LEGS, CONTRACTIONS AND SOME SWELLING, gct today reviewed labor rpecautions Menstrual History Last Menstrual Date Menses Monthly On Bcp Conception Prior Menses Frequency Hcg Plus Date Menarche Onset Age 0107/25/2019 Genetic Screening And Infection History Question Response Note Mental Retardation/Autism false Patient's Age Will Be 35 Years Or Older At Estim ated Date of Delivery true Thalassemia (Bhutanese, Swazi, Mediterranean, Or Background): MCV < 80 false Neural Tube Defect (Meningomyelocele, Spina Bifi da, Or Anencephaly) false Congenital Heart Defect false Down Syndrome false Arias-Sachs (eg, Spiritism, Cajun, Nigerien-Russian) f alse Manjinder Disease false Sickle Cell Disease Or Trait () false Hemophilia Or Other Blood Disorders false Muscular Dystrophy false Cystic Fibrosis false Haley's Chorea false Intellectual Disability/Autism false If Yes, Was Person Tested For Fragile X? false Other Inherited Genetic Or Chromosomal Disorder false Maternal Metabolic Disorder (eg, Type 1 Diabetes , PKU) false Patient Or Baby's Father Had A Child With Defects Not Listed Above false Recurrent Loss, Or A Stillbirth false Medications (including Suppl ements, Vitamins, Herbs, OTC Drugs), Illicit/Recreational Drugs, Alcohol false If Yes, Agent(s) And Strength/Dosage false Any Other Genetic History false Live With Someone With TB Or Exposed To TB false Patient Or Partner Has History Of Genital Herpes false Rash Or Viral Illness Since Last Menstrual Perio d false History Of STD, Gonorrhea, Chlamydia, HPV, Syphi lis false Other Infection History false History of HIV false History of Hepatitis false Prior GBS-infected child false Hemoglobinopathy Or Carrier false Other Structural Defect false Recent Travel History Outside of Country false Delivery Information Delivery Date Delivery Type Labor Anesthesia Weeks Gestation Incision Type Labor Labor Length Hrs Delivered By Post Complications Tubal Sterilization Discharge Date Comments Dianelys Rodriguez [facility] Discharge Information Feeding Method Contraceptive Method Maternal HG B and HCT Levels Ob Episode Information Episode Created Date Number of Fetuses Patient Bloodtype Patient rh Status Prepregnancy Weight lbs Domestic Partner Domestic Partner Phone Father Name Chainstitch Elastic Attacher Status 01/20/20 22 1 CLOSED Fetus Data First Name Last Name Admitted to NICU Weight (g) Sex Living Outcome Pediatric Complications Fetus ID Race Codes Race Delivery Type [id number] [id number] F Full Term [id number] Primary Darein Calculation Initial Darien Date Initial Exam Date Initial Exam Provider Initial Ultrasound Date Last Menstrual Period Date Ultra Sound Weeks Gestation 0 Eighteen To Twenty Week Darien Update Ultra Sound Date Fundal Height At Umbil Quickening Date Ultra Sound Latest Weeks Gestation Final Darien Confirmed By Final Darien Confirmed Date Final Darien Date Ultra Sound Latest Days Gestation 0 0 Menstrual History Last Menstrual Date Menses Monthly On Bcp Conception Prior Menses Frequency Hcg Plus Date Menarche Onset Age Delivery Information Delivery Date Delivery Type Labor Anesthesia Weeks Gestation Incision Type Labor Labor Length Hrs Delivered By Post Complications Tubal Sterilization Discharge Date Comments 0 36 Debbie Jones, bedrest for labor at 18 weeks, breech, high blood pressure after delivery Discharge Information Feeding Method Contraceptive Method Maternal HG B and HCT Levels
== END 2024-12-07 10:23 | disposition home or self-care (01) ==
LOC: ANHIMG 10:24
PROVIDERS: PCP Emergency Medicine; Visit Provider Surgery
DX: Z12.31 Encounter for screening mammogram for malignant neoplasm of breast (principal)
CPT/HCPCS: 77063; 77067

== ENCOUNTER 2025-03-30 19:26 | Emergency (ER) | payer OTHER, SELFPAY ==
--- NOTE | ~2025-03-30 | XR_ITS ---
EXAMINATION: XR chest 1V, 03/30/2025 21:32 CDT HISTORY: dizzy COMPARISON: No comparisons available. Technique: Single view. Findings: The lungs are clear, no effusion. No pneumothorax. Heart is normal size. Mediastinal and hilar contours are within normal limits. Bony thorax no acute abnormality. Impression: No acute cardiopulmonary abnormality. Reviewed, dictated and finalized at location A. Impression: No acute cardiopulmonary abnormality.
[2025-03-30 19:33] VITALS: BP 118/62; PULSE 87; RESP 20; TEMP 37.4; O2SAT 100
--- NOTE | 2025-03-30 20:44 | ECG_ITS ---
Test Date: 2025-03-30 21:17:42 Measurements Intervals Spencer Rate: 80 P: 73 IL: 149 QRS: 83 QRSD: 79 T: 64 QT: 356 QTc: 413 Interpretive Statements SINUS RHYTHM WITH SINUS ARRHYTHMIA POSSIBLE LEFT ATRIAL ENLARGEMENT [-0.1mV P-WAVE IN V1/V2] SEPTAL MYOCARDIAL INFARCTION , OF INDETERMINATE AGE [40+ ms Q WAVE IN V1/V2] ABNORMAL ECG No previous ECG available for comparison Electronically Signed On 03-31-2025 09:41:04 CDT by Kyaw Ross M.D.
[2025-03-30 21:19] LABS: Hematocrit 40.5 % (37.0-47.0); Hemoglobin 13.5 g/dL (12.0-15.0); Immature Granulocyte Percent A 0.4 % (0-0.5); Lymphocytes Absolute Auto 1.32 K/mm3 (0.9-3.2); Mean Corpuscular HGB Conc 33.3 g/dl (32-36); Mean Corpuscular Hemoglobin 29.0 pg (26-34); Mean Corpuscular Volume 87.1 fl (80-100); Nucleated Red Blood Cells Absolute Auto 0.000 K/mm3 (0.0-0.012); Nucleated Red Blood Cells Perc 0.0 % (0.0-0.2); Platelet Count Result 295 k/mm3 (150-375); Red Blood Count 4.65 M/mm3 (4.2-5.4); White Blood Count 13.5 K/mm3 (4.5-10.0)
[2025-03-30 21:31] LABS: Alanine Aminotransferase 16 U/L (6-35); Albumin Level 4.5 g/dL (3.5-5.1); Alkaline Phosphatase 55 U/L (38-126); Anion Gap 9 mmol/L (4-12); Aspartate Amino Transferase 30 U/L (14-36); Bilirubin,Total 0.4 mg/dL (0.2-1.3); Blood Urea Nitrogen 9 mg/dL (7-17); Calcium 9.0 mg/dL (8.4-10.2); Carbon Dioxide 24 mmol/L (22-30); Chloride 105 mmol/L (98-107); Estimated Glomerular Filt Rate > 60; Glucose 109 mg/dL (65-110); Lipase 47 U/L (23-300); Potassium 4.0 mmol/L (3.4-5.0); Sodium 138 mmol/L (137-145); Total Protein 7.9 g/dL (6.3-8.2)
[2025-03-30 23:11] VITALS: BP 125/73; PULSE 73; RESP 14; TEMP 36.6; O2SAT 100
[2025-03-30 23:29] VITALS: BP 109/76; BP 116/70; BP 119/75
[2025-03-30 23:31] LABS: BEDSIDEPREGUCG Negative (Negative)
[2025-03-30] MEDS: SODIUM CHLORIDE 0.9% IV 1,000 ML 999 ML IV CONT (23:51)
[2025-03-30 23:56] LABS: Add Urine Microscopic? YES; Appearance Urine Cloudy (Clear); Glucose Urine UA Negative (Negative); Leukocyte Esterase Ur Negative LEU/UL (Negative); Need Manual Microscopic Reviewed; Nitrate Urine Negative (Negative); Specific Grav Ur 1.024 (1.001-1.035)
[2025-03-30] MEDS: ONDANSETRON INJ 4 MG/2 ML VIAL IV PUSH (23:56)
[2025-03-30] MEDS: MECLIZINE HCL 25 MG TABLET PO (23:56)
--- NOTE | 2025-03-31 | ED.DIZZY ---
HPI - Dizziness General Chief Complaint: Dizziness Stated Complaint: vomiting/dizziness 2 days Time Seen by Provider: 03/30/25 23:30 History of Present Illness HPI Narrative: Patient is a 39-year-old female who presents emergency department this evening complaining of dizziness. Patient states that it started yesterday when she woke up from sleep. Admits that it is very positional, if she sits still and does not move she is completely asymptomatic but the moment she moves, specially her head she becomes dizzy and nauseous. Denies any history of peripheral vertigo, denies any recent illness, fevers or chills. No additional symptoms or concerns at this time. Related Data Home Medications ?Medication ?Instructions ?Recorded ?Confirmed ?Last Taken ?Type gabapentin 100 mg capsule 100 mg PO DAILY 12/22/23 Unknown History rizatriptan 5 mg tablet 5 mg PO ONCE PRN 12/22/23 Unknown History Allergies Allergy/AdvReac Type Severity Reaction Status Date / Time No Known Allergies Allergy Verified 03/30/25 19:37 Review of Systems Review of Systems: All systems are reviewed and are negative unless stated otherwise in the HPI. [facility] Past Medical History Medical History Heart palpitations Migraines Surgical History Surgical History Previous section x2 Family History Family History Father Hypertension Mother Asthma Other Asthma Grandparent Hypertension Alcoholism Asthma Cancer Social History Social History Smoking status: Former smoker Second hand tobacco smoke exposure: No Smoking end date: 07/18/15 Alcohol intake: current Substance use: never Substance use type: does not use Do You Feel Safe in your Home?: Yes Lack of Transportation: No Lack of Food: Never True Current Housing: I Have Housing Concerned About Future Housing: No Difficulty Paying Gas/Electric Bills: No Difficulty Paying for Meds: No Currently Unemployed: No Education: High School Diploma/GED Difficulty w/ Childcare or Family Care: No Gender identity (if verbalized by the patient): Female Spiritual care concerns: No Exam Narrative: General: Alert, awake, afebrile, in no acute distress. HEENT: PERRL, no rhinorrhea, no post nasal drip, oropharynx clear. Neck: Trachea midline, no JVD, no lymphadenopathy. Cardiovascular: Regular rate and rhythm, no murmurs, rubs or gallops, no peripheral edema. Respiratory: Clear to auscultation bilaterally, no tachypnea, no wheezing, no rhonchi, no rubs, no respiratory distress. Abdomen: Soft, nontender, nondistended, no rebound, no guarding, no peritoneal signs. Musculoskeletal: No joint swelling or deformity, normal muscle tone. Skin: No rashes or petechia, no signs of infection. Psychiatric: Alert and oriented, normal behavior and judgment for situation. Neurological: Alert and oriented to person, place, and time. Follows all commands. No focal deficits, speech is clear and fluent. Course Vital Signs Vital signs: Vital Signs Temperature 99.4 F 03/30/25 19:33 Pulse Rate 87 03/30/25 19:33 Respiratory Rate 20 03/30/25 19:33 Blood Pressure 118/62 03/30/25 19:33 Pulse Oximetry 100 03/30/25 19:33 Oxygen Delivery Room Air 03/30/25 19:33 Temperature 97.7 F 03/31/25 01:04 Pulse Rate 87 03/31/25 01:04 Respiratory Rate 16 03/31/25 01:04 Blood Pressure 116/76 03/31/25 01:04 Pulse Oximetry 100 03/31/25 01:04 Oxygen Delivery Room Air 03/30/25 19:33 MDM - Dizziness MDM Narrative Medical decision making narrative: The patient was evaluated by myself in the emergency department. History is obtained from patient who is an independent historian and physical exam was performed. External medical records were reviewed at this time. IV was established and pertinent tests were ordered. Patient was administered 25 mg of oral meclizine and 4 mg IV Zofran and 1 L IV fluid bolus with normal saline. EKG was obtained which revealed sinus rhythm rate of 80 beats per minute. No ST changes, T wave inversions or evidence of acute ischemia. EKG was independently interpreted by me and is currently pending official cardiology read. Laboratory results obtained revealing no acute process. Urinalysis revealed 3+ ketones at this time patient was administered a 2nd IV fluid bolus L was normal saline. Imaging studies obtained included CXR which was independently interpreted by me revealing no acute process, which is pending final radiology interpretation. Differential diagnosis considerations include dehydration, acute viral syndrome, electrolyte derangements, acute kidney injury, benign positional vertigo. Comorbidities impacting this visit include none. I have evaluated and discussed social determinants of health with the patient that could potentially impact subsequent diagnosis and treatment plans. On repeat assessment of the patient, reevaluation revealed that the patient is doing well and is in no acute distress. Patient symptoms have improved since she arrived to our emergency department. Repeat vital signs were all reviewed and noted to be stable. Differential diagnosis and treatment plan were discussed with the patient at bedside. Patient agrees with discussion and after shared medical decision making agrees with discharge. All questions were answered to the patient's satisfaction. Patient will follow up with ENT in 3-5 days. Script for Zofran sent to patient's pharmacy to use as needed for nausea/vomiting. Patient was provided with strict return precautions and instructed to return to the emergency department if any new or worsening symptoms develop. The patient was discharged in stable condition. Lab Data 03/30/25 21:12 03/30/25 21:12 Labs: Lab Results 03/30/25 03/30/25 03/30/25 Range/Units 21:12 23:26 23:30 WBC 13.5 H (4.5-10.0) K/mm3 RBC 4.65 (4.2-5.4) M/mm3 Hgb 13.5 D (12.0-15.0) g/dL Hct 40.5 (37.0-47.0) % MCV 87.1 (80-100) fl MCH 29.0 (26-34) pg MCHC 33.3 (32-36) g/dl RDW 12.8 (11.5-14.5) % Plt Count 295 (150-375) k/mm3 MPV 10.7 H (7.4-10.4) fl Immature Gran % (Auto) 0.4 (0-0.5) % Neut % (Auto) 87.3 H (45.5-73.1) % Lymph % (Auto) 9.7 L (18.3-44.2) % Bertie % (Auto) 2.1 L (2.6-8.5) % Eos % (Auto) 0.1 (0-4.4) % Baso % (Auto) 0.4 (0.2-1.2) % Lymph # (Auto) 1.32 (0.9-3.2) K/mm3 Bertie # (Auto) 0.3 (0.1-0.6) K/mm3 Eos # (Auto) 0.0 (0-0.3) K/mm3 Baso # (Auto) 0.1 (0.0-0.1) K/mm3 Abs Immat Gran (auto) 0.05 H (0.00-0.031) K/mm3 Absolute Neuts (auto) 11.8 H (1.3-6.7) K/mm3 Absolute Nucleated RBC 0.000 (0.0-0.012) K/mm3 Nucleated RBC % 0.0 (0.0-0.2) % Sodium 138 (137-145) mmol/L Potassium 4.0 (3.4-5.0) mmol/L Chloride 105 (98-107) mmol/L Carbon Dioxide 24 (22-30) mmol/L Anion Gap 9 (4-12) mmol/L BUN 9 (7-17) mg/dL Creatinine 0.55 L (0.7-1.0) mg/dL Estim Creat Clear Calc Not Reportable Estimated GFR > 60 (59 - ) Glucose 109 (65-110) mg/dL Calcium 9.0 (8.4-10.2) mg/dL Total Bilirubin 0.4 (0.2-1.3) mg/dL AST 30 (14-36) U/L ALT 16 (6-35) U/L Alkaline Phosphatase 55 (38-126) U/L Total Protein 7.9 (6.3-8.2) g/dL Albumin 4.5 (3.5-5.1) g/dL Lipase 47 (23-300) U/L Urine Color Yellow (Yellow) Urine Appearance Cloudy H (Clear) Urine pH 5.5 (5.0-9.0) Ur Specific [place] 1.024 (1.001-1.035) Urine Protein Trace (Negative) mg/dL Urine Glucose (UA) Negative (Negative) mg/dL Urine Ketones 3+ H (Negative) mg/dL Ur Blood (Man) Negative (Negative) Urine Nitrate Negative (Negative) Urine Bilirubin Negative (Negative) Urine Urobilinogen 0.2 (<2.0) mg/dL Add Ur Microanalysis Reviewed Leukocyte Esterase Rfl Negative (Negative) LUCRETIA/UL Urine RBC 3-5 H (0-2) /hpf Urine WBC 0-5 (0-3) /hpf Ur Squamous Epith Cells Moderate (Few) /hpf Urine Bacteria None seen /hpf Urine Casts 3-5 Urine Mucus Present /lpf POC Urine HCG, Qual Negative (Negative) Discharge Plan Discharge Clinical Impression: Vertigo, Dehydration Patient Disposition: Home Condition: Improved Instructions: Antibiotic Form, Benign Paroxysmal Positional Vertigo (ED) Additional Instructions: Please follow-up with the ENT physician your provided with today regarding your peripheral vertigo within the next 3-5 days. Return to ED if any new or worsening symptoms develop. Use the prescribed Zofran as needed for nausea/vomiting. Patient Language: Djiboutian Prescriptions: New ondansetron 4 mg tablet,disintegrating 4 mg PO Q8H PRN (Reason: nausea and vomiting) Qty: 10 0RF No Action gabapentin 100 mg capsule 100 mg PO DAILY rizatriptan 5 mg tablet 5 mg PO ONCE PRN Rx Instructions: may repeat once after at least 2 hours ibuprofen [IBU] 600 mg tablet 600 mg PO QID PRN (Reason: fever or pain) Qty: 7 0RF Follow-up/Referrals: eorge [Other] Elías Dominguez MD [Physician, Ear, Nose, Throat] - 3 Days Nabil Mares MD [Primary Care Provider, [facility]] Time of Disposition: 23:53
[2025-03-31] MEDS: SODIUM CHLORIDE 0.9% IV 1,000 ML 999 ML IV CONT (00:05)
[2025-03-31 01:04] VITALS: BP 116/76; PULSE 87; RESP 16; TEMP 36.5; O2SAT 100
== END 2025-03-31 01:09 | disposition home or self-care (01) ==
PROVIDERS: Emergency Provider Emergency Medicine; PCP Emergency Medicine
DX: R42 Dizziness and giddiness (principal); E86.0 Dehydration
CPT/HCPCS: 36415; 71045; 80053; 81001; 81025; 83690; 85025; 93005; 96361; 96374; 99284; A9270; J2405; J7030